=== PATIENT | male | born 1945 | race Caucasian/White ===

== ENCOUNTER 2018-07-03 11:26 | Inpatient (IN) | payer MEDICARE ==
[2018-07-03] MEDS ORDERED: IPRATROPIUM/ALBUTEROL 0.5-2.5 MG/3 ML AMPUL NEB ONE (13:31)
--- NOTE | 2018-07-03 14:17 | ER Document Report ---
ED General - General Chief Complaint: Cough Stated Complaint: COUGH,CONGESTION,SHORT OF BREATH Time Seen by Provider: 07/03/18 13:15 Mode of Arrival: Ambulatory Information source: Patient Notes: This 73-year-old male presents emergency department with complaints of shortness of breath. Patient reports approximately 2-3 weeks ago he was sick he had nausea. He reports his symptoms went away. For the past week he has had extreme shortness of breath with any type of exertion. Reports he becomes short of breath when laying flat. Or on his right side. He reports he feels better when he lays on his left side. Denies weight gain or pitting edema. He denies chest pain denies fever nausea vomiting. Denies trauma. Reports that he just drove from [place] to [place] on Friday. He took 2 days driving approximately 8 hours each day. He reports he did not get out and walk around that much. Patient is a diabetic and gives himself Lantus 35 units every a.m. He reports his sugar has been on the low side lately. Patient has history of OR with stents placed in 1994 and bypass in 2011. TRAVEL OUTSIDE OF THE [place] IN LAST 30 DAYS: No - HPI Onset: Other Onset/Duration: Persistent Quality of pain: No pain Severity: None Associated symptoms: None Exacerbated by: Supine - Related Data Allergies/Adverse Reactions: No Known Allergies Allergy (Unverified 07/03/18 11:31) Past Medical History - General Information source: Patient - Social History Smoking Status: Former Smoker Cigarette use (# per day): No Chew tobacco use (# tins/day): No Frequency of alcohol use: None Drug Abuse: None Lives with: Family Family History: Reviewed & Not Pertinent Patient has suicidal ideation: No Patient has homicidal ideation: No - Past Medical History Cardiac Medical History: Reports: Hx Heart Attack - 1994, Hx Hypercholesterolemia, Hx Hypertension Endocrine Medical History: Reports: Hx Diabetes Mellitus Type 2 Renal/ Medical History: Denies: Hx Peritoneal Dialysis Past Surgical History: Reports: Hx Cardiac Surgery - CABG Review of Systems - Review of Systems Notes: Review HPI for review of systems., All other systems negative Physical Exam - Vital signs Vitals: Pulse Resp BP Pulse Ox 71 20 121/89 H 98 07/03/18 11:32 07/03/18 11:32 07/03/18 11:32 07/03/18 11:32 - Notes Notes: PHYSICAL EXAMINATION: GENERAL: Well-appearing and in no acute distress HEAD: Atraumatic, normocephalic. EYES: Pupils equal round , extraocular movements intact, sclera anicteric, conjunctiva are normal. ENT: nares patent. Moist mucous membranes. NECK: Normal range of motion, supple without lymphadenopathy LUNGS: wheeze, SOB with exertion HEART: irregular ABDOMEN: Soft, round, no tenderness. No guarding, no rebound EXTREMITIES: Normal range of motion, no pitting edema. No cyanosis. NEUROLOGICAL: Cranial nerves grossly intact. Normal sensory/motor exams. PSYCH: Normal mood, normal affect. SKIN: Warm, Dry, normal turgor, no rashes or lesions noted - Respiratory Respiratory status: No respiratory distress Chest status: Nontender Breath sounds: Wheezing Chest palpation: Normal - Cardiovascular Rhythm: Other - irregular -rvr Course - Re-evaluation Re-evalutation: 07/03/18 14:28 Instructed on plan of care to include labs EKG chest x-ray. He reports he feels better after the neb treatment. 07/03/18 15:45 Dr. AZAR consulted for admission for A. fib shortness of breath pleural effusions. He admits to IMCU will consult Dr. Warner for him. 07/03/18 16:[address] Leger. Discussed medications. Patient is currently taking Lopressor [address] Warner suggest 5 mg IV Lopressor followed by a CTA of the chest.. Patient and informed of admission to treat the atrial fib. They agree to admissions. Patient reports he does remember having atrial fib at one time. He reports after he had his bypass he was about to be discharged when they told him he was not going home because he was in atrial fib. He reports he was treated with medication the atrial fib went away and he went home. 07/03/18 16:35 Dr. Warner on the phone. He requested patient to have half-normal saline 50 mils an hour for 1 L. - Vital Signs Vital signs: Temp Pulse Resp BP Pulse Ox 97.6 F 71 22 H 127/102 H 93 07/03/18 15:40 07/03/18 11:32 07/03/18 16:01 07/03/18 16:01 07/03/18 16:01 - Laboratory Result Diagrams: 07/03/18 14:15 07/03/18 14:15 Laboratory results interpreted by me: 07/03/18 07/03/18 07/03/18 14:15 14:15 14:15 WBC 12.7 H RDW 14.2 H Seg Neutrophils % 82.9 H Lymphocytes % 9.4 L Absolute Neutrophils 10.5 H PT BUN 35 H Creatinine 1.26 H Est GFR (Non-Af Amer) 56 L Total Bilirubin 1.5 H Creatine Kinase 49 L NT-Pro-B Natriuret Pep 2880 H Urine Protein Urine Glucose (UA) Urine Bilirubin Urine Urobilinogen 07/03/18 07/03/18 14:15 14:15 WBC RDW Seg Neutrophils % Lymphocytes % Absolute Neutrophils PT 15.6 H BUN Creatinine Est GFR (Non-Af Amer) Total Bilirubin Creatine Kinase NT-Pro-B Natriuret Pep Urine Protein >=500 H Urine Glucose (UA) 50 H Urine Bilirubin SMALL H Urine Urobilinogen 2.0 H - Diagnostic Test Radiology reviewed: Image reviewed, Reports reviewed - EXAM DESCRIPTION: CHEST 2 VIEWS COMPLETED DATE/TIME: 07/03/2018 2:02 pm REASON FOR STUDY: SOB COMPARISON: None. EXAM PARAMETERS: NUMBER OF VIEWS: two views TECHNIQUE: Digital Frontal and Lateral radiographic views of the chest acquired. RADIATION DOSE: NA LIMITATIONS: none FINDINGS: LUNGS AND PLEURA: Diffuse interstitial prominence. No opacities, masses or pneumothorax. Left pleural effusion. Possible small right pleural effusion. MEDIASTINUM AND HILAR STRUCTURES: No masses or contour abnormalities. HEART AND VASCULAR STRUCTURES: Heart normal size. No evidence for failure. BONES: No acute findings. HARDWARE: Sternotomy wires and surgical clips. OTHER: No other significant finding. IMPRESSION: DIFFUSE INTERSTITIAL PROMINENCE, PRESUMED CHRONIC SCARRING. LEFT PLEURAL EFFUSION. POSSIBLE SMALL RIGHT PLEURAL EFFUSION. - EKG Interpretation by Me Rhythm: A.Fib Additional EKG results interpreted by me: 07/03/18 16:10 rvr - Consults [facility] Time consulted: 15:45 Reason for consultation: 07/03/18 16:08 AFIB, SOB, PLEURAL EFFUSIONS Consulted provider: will see as inpatient [facility] Time consulted: 16:00 Reason for consultation: 07/03/18 16:09 AFIB, CONSULT FROM HOSPITALIST Consulted provider: will see as inpatient Discharge - Discharge Clinical Impression: SOB (shortness of breath), New onset atrial fibrillation Condition: Stable Disposition: ADMITTED INPATIENT Admitting Provider: Hospitalist - [facility] Unit Admitted: [facility]
--- NOTE | 2018-07-03 14:19 | RADIOLOGY REPORT (SQ) ---
EXAM DESCRIPTION: CHEST 2 VIEWS COMPLETED DATE/TIME: 07/03/2018 2:02 pm REASON FOR STUDY: SOB COMPARISON: None. EXAM PARAMETERS: NUMBER OF VIEWS: two views TECHNIQUE: Digital Frontal and Lateral radiographic views of the chest acquired. RADIATION DOSE: NA LIMITATIONS: none FINDINGS: LUNGS AND PLEURA: Diffuse interstitial prominence. No opacities, masses or pneumothorax. Left pleural effusion. Possible small right pleural effusion. MEDIASTINUM AND HILAR STRUCTURES: No masses or contour abnormalities. HEART AND VASCULAR STRUCTURES: Heart normal size. No evidence for failure. BONES: No acute findings. HARDWARE: Sternotomy wires and surgical clips. OTHER: No other significant finding. IMPRESSION: DIFFUSE INTERSTITIAL PROMINENCE, PRESUMED CHRONIC SCARRING. LEFT PLEURAL EFFUSION. POS SIBLE SMALL RIGHT PLEURAL EFFUSION. TECHNICAL DOCUMENTATION: JOB ID: [id number] [employer] All Rights Reserved Reading location - IP/workstation name: [email or web address]
[2018-07-03 14:30] LABS: ABSOLUTE BASOPHILS # (AUTO) 0.1 10^3/uL (0.0-0.2); ABSOLUTE LYMPHOCYTES (AUTO) 1.2 10^3/uL (0.5-4.7); ABSOLUTE MONOCYTES (AUTO) 0.8 10^3/uL (0.1-1.4); ABSOLUTE NEUT (AUTO) 10.5 10^3/uL (1.7-8.2); BASOPHILS % (AUTO) 0.9 % (0-2); EOSINOPHILS % (AUTO) 0.3 % (0-6); HEMATOCRIT 41.7 % (37.9-51.0); LYMPHOCYTES % (AUTO) 9.4 % (13-45); MEAN CORPUSCULAR HEMOGLOBIN 30.6 pg (27.0-33.4); MEAN CORPUSCULAR HGB CONC 33.6 g/dL (32.0-36.0); MEAN CORPUSCULAR VOLUME 91 fl (80-97); MONOCYTES % (AUTO) 6.5 % (3-13); PLATELET COUNT 232 10^3/uL (150-450); RED BLOOD COUNT 4.58 10^6/uL (4.35-5.55); RED CELL DISTRIBUTION WIDTH 14.2 % (11.5-14.0); SEGMENTED NEUTROPHILS % (AUTO) 82.9 % (42-78); TOTAL CELLS COUNTED % (AUTO) 100 %; WHITE BLOOD COUNT 12.7 10^3/uL (4.0-10.5)
[2018-07-03 14:46] LABS: INTERNATIONAL RATION (INR) 1.18; PROTHROMBIN TIME 15.6 SEC (11.4-15.4)
[2018-07-03 14:47] LABS: APPEARANCE,URINE SLIGHTLY-CLOUDY; BILIRUBIN,URINE SMALL (NEGATIVE); GLUCOSE, URINE 50 mg/dL (NEGATIVE); KETONES,URINE NEGATIVE (NEGATIVE); LEUKOCYTE ESTERASE,URINE NEGATIVE (NEGATIVE); NITRITE,URINE NEGATIVE (NEGATIVE); PARTIAL THROMBOPLASTIN TIME 32.7 SEC (23.5-35.8); PROTEIN,URINE >=500 mg/dL (NEGATIVE); URINE SPECIFIC GRAVITY 1.034
[2018-07-03 14:48] LABS: ALANINE AMINOTRANSFERASE 58 U/L (21-72); ALBUMIN 4.5 g/dL (3.5-5.0); ALKALINE PHOSPHATASE 73 U/L (38-126); ANION GAP 11 (5-19); ASPARTATE AMINO TRANSFERASE 37 U/L (17-59); BILIRUBIN,DIRECT 0.4 mg/dL (0.0-0.4); BILIRUBIN,TOTAL 1.5 mg/dL (0.2-1.3); BLOOD UREA NITROGEN 35 mg/dL (7-20); CALCIUM 9.4 mg/dL (8.4-10.2); CARBON DIOXIDE 25 mmol/L (22-30); CHLORIDE 103 mmol/L (98-107); COLOR,URINE DARK YELLOW; CREATINE KINASE 49 U/L (55-170); GLUCOSE 110 mg/dL (75-110); SODIUM 138.7 mmol/L (137-145); TOTAL PROTEIN 7.4 g/dL (6.3-8.2)
[2018-07-03 14:59] LABS: CREATINE KINASE MB 1.04 ng/mL (<4.55); NT PRO BNP 2880 pg/mL (5-900)
[2018-07-03 15:00] LABS: TROPONIN I < 0.012 ng/mL
[2018-07-03] MEDS ORDERED: METOPROLOL TARTRATE PF/INJ 5 MG/5 ML SDV IV ONE (16:06)
[2018-07-03] MEDS ORDERED: NORMAL SALINE 1000 ML 1,000 ML IV ONE (16:35)
[2018-07-03] MEDS ORDERED: 1/2 NORMAL SALINE 1,000 ML IV ONE (16:37)
--- NOTE | 2018-07-03 17:03 | RADIOLOGY REPORT (SQ) ---
EXAM DESCRIPTION: CTA CHEST COMPLETED DATE/TIME: 07/03/2018 4:45 pm REASON FOR STUDY: SOB COMPARISON: None. TECHNIQUE: CT scan of the chest performed using helical scanning technique with dynamic intravenous contrast injection. Images reviewed with lung, soft tissue and bone windows. Reconstructed coronal and sagittal MPR images reviewed. Additional 3 dimensional post-processing performed to develop Maximal Intensity Projection images (GA P). All images stored on PACS. All CT scanners at this facility use dose modulation, iterative reconstruction, and/or weight based d osing when appropriate to reduce radiation dose to as low as reasonably achievable (ALARA). [facility]: Dose Right [facility]: CareDose [facility]: Dose Right [facility]: Teradose 4D [facility]: KSKT CONTRAST TYPE AND DOSE: contrast/concentration: Isovue 350.00 mg/ml; Total Contrast Delivered: 79.0 ml; Total Saline Delivered: 110.0 ml Contrast bolus optimized for the pulmonary arteries. Not diagnostic for the aorta. RENAL FUNCTION: BUN 35 creatinine 1.26. RADIATION DOSE: CT Rad equipment meets quality standard of care and radiation dose reduction techniq ues were employed. CTDIvol: 17.3 - 52.9 mGy. DLP: 688 mGy-cm. . LIMITATIONS: None. FINDINGS: LUNGS AND PLEURA: No masses, infiltrates, or pneumothorax. Scattered atelectasis in the l ower lobes. Moderately large bilateral pleural effusions. . AORTA AND GREAT VESSELS: No aneurysm. Contrast bolus not optimized for the aorta. HEART: No pericardial effusion. No significant coronary artery calcifications. PULMONARY ARTERIES: No emboli visualized in the main pulmonary arteries or the segmental branches. HILAR AND MEDIASTINAL STRUCTURES: No identified masses or abnormal nodes. HARDWARE: None in the chest. UPPER ABDOMEN: No significant findings. Limited exam. THYROID AND OTHER SOFT TISSUES: No masses. No adenopathy. BONES: No acute or significant finding. 3D MIPS: Confirm above findings. OTHER: No other significant finding. IMPRESSION: 1. NORMAL CTA OF THE CHEST. NO PULMONARY EMBOLI. 2. MODERATELY LARGE BILATERAL PLEURAL EFFUSIONS WITH BASILAR ATELECTASIS. COMMENT: Quality ID # [id number]: Final reports with documentation of one or more dose reduction techniques (e.g., Automated exposure control, adjustment of the mA and/or kV according to patient size, use of iterative reconstruction technique) TECHNICAL DOCUMENTATION: JOB ID: [id number]- All Rights Reserved Reading location - IP/workstation name: [email or web address]
[2018-07-03] MEDS ORDERED: DOCUSATE SODIUM 100 MG CAPSULE PO PRN (17:36)
[2018-07-03] MEDS ORDERED: ACETAMINOPHEN 325 MG TABLET PO PRN (17:36)
[2018-07-03] MEDS ORDERED: ONDANSETRON 4 MG TAB.RAPDIS PO PRN (17:36)
--- NOTE | 2018-07-03 17:40 | EKG REPORT ---
SEVERITY:- ABNORMAL ECG - ATRIAL FIBRILLATION WITH RVR. NONSPECIFIC T ABNORMALITIES, INFERIOR LEADS BORDERLINE PROLONGED QT INTERVAL : Confirmed by: Lc Ulloa MD 03-Jul-2018 17:39:57
[2018-07-03] MEDS ORDERED: DILTIAZEM HCL INJ 25 MG/5 ML VIAL IV ONE (17:49)
[2018-07-03] MEDS: DILTIAZEM HCL/D5W 125 MG/125 ML RTUINJ IV PRN (18:11)
[2018-07-03] MEDS: APIXABAN 5 MG TABLET PO SCH (19:04)
[2018-07-03] MEDS ORDERED: INSULIN REG, HUMAN 100 UNIT/ML 3 ML VIAL (PYX) SUBCUT PRN (20:36)
[2018-07-03] MEDS ORDERED: DEXTROSE 50%-WATER 25 GM/50 ML DISP.SYRIN IV PRN ×2 (20:36)
[2018-07-03] MEDS ORDERED: DEXTROSE 40% GEL 15 GM TUBE PO PRN ×2 (20:36)
[2018-07-03] MEDS ORDERED: GLUCAGON,HUMAN RECOMB 1 MG INJ IM PRN (20:36)
[2018-07-03 20:38] LABS: CREATINE KINASE MB 0.97 ng/mL (<4.55)
--- NOTE | 2018-07-03 20:38 | PDOC H&P ---
History of Present Illness Admission Date/PCP: 07/03/18 16:12 Patient complains of: Weakness, dyspnea, nausea but no chest pain History of Present Illness: COOPER AMADOR is a 73 year old male with a history of coronary stents and subsequent four-vessel bypass (2011) as well as hypertension, diabetes mellitus and psoriasis. He is visiting his grandson from [facility]. His reports that he is not been feeling well over the past 1-2 weeks but refused to go to the doctor. Symptoms were as noted above. His symptoms would fluctuate over the course of the 1-2 weeks. He began to have a productive cough. He presented to a walk-in clinic where his atrial fibrillation with rapid ventricular response was identified. He was directed to go to the emergency room. He was found to be in atrial fibrillation with heart rate between 130 and 150. He is referred to the hospitalist for admission. Past Medical History Cardiac Medical History: Reports: Coronary Artery Disease, Myocardial Infarction - 1994, Hyperlipidema, Hypertension Pulmonary Medical History: Denies: Asthma, Chronic Obstructive Pulmonary Disease (COPD), Respiratory Failure EENT Medical History: Reports: None Neurological Medical History: Reports: None Endocrine Medical History: Reports: Diabetes Mellitus Type 2 Renal/ Medical History: Reports: None Malignancy Medical History: Reports: None GI Medical History: Reports: None Musculoskeltal Medical History: Reports: None Skin Medical History: Reports: None Psychiatric Medical History: Reports: None Traumatic Medical History: Reports: None Hematology: Reports: None Infectious Medical History: Reports: None Past Surgical History Past Surgical History: Reports: Cardiac Catheterization - With stents, Coronary Artery Bypass Graft Social History Information Source: Patient, Relative Lives with: Family Smoking Status: Former Smoker Frequency of Alcohol Use: Rare Hx Recreational Drug Use: No Drugs: None Hx Prescription Drug Abuse: No - Advance Directive Resuscitation Status: Full Code Surrogate healthcare decision maker:: The patient's is the designated healthcare proxy. No formal documentation exists at this time. Family History Family History: CAD, Thyroid Disfunction Parental Family History Reviewed: Yes Children Family History Reviewed: Yes Sibling(s) Family History Reviewed.: Yes Medication/Allergy Home Medications: Aspirin [Aspirin 325 mg Tablet] 325 mg PO DAILY 07/03/18 Atorvastatin Calcium [Lipitor 20 mg Tablet] 20 mg PO DAILY 07/03/18 Insulin Glargine,Hum.rec.anlog [Lantus Insulin 100 Unit/mL] 35 unit SQ QHS 07/03/18 Metformin HCl 1,000 mg PO BID 07/03/18 Metoprolol Tartrate [Lopressor 50 mg Tablet] 50 mg PO DAILY 07/03/18 Ramipril [Altace 5 mg Capsule] 5 mg PO QHS 07/03/18 Allergies/Adverse Reactions: No Known Allergies Allergy (Unverified 07/03/18 11:31) Review of Systems Constitutional: PRESENT: as per HPI, fatigue. ABSENT: chills, headache(s), night sweats Ears: ABSENT: hearing changes Nose, Mouth, and Throat: ABSENT: mouth pain, sore throat Cardiovascular: PRESENT: dyspnea on exertion, edema, palpitations. ABSENT: chest pain Respiratory: PRESENT: cough, dyspnea, sputum Gastrointestinal: PRESENT: nausea. ABSENT: abdominal pain, constipation, diarrhea, heartburn, melena, vomiting Genitourinary: ABSENT: dysuria, hematuria Musculoskeletal: ABSENT: back pain, deformity, joint swelling Integumentary: ABSENT: diaphoresis, erythema, rash, wounds Neurological: ABSENT: abnormal gait, abnormal speech, convulsions, memory loss, syncope Psychiatric: ABSENT: anxiety, depression, hallucinations Endocrine: ABSENT: cold intolerance, heat intolerance, polydipsia, polyuria Hematologic/Lymphatic: ABSENT: easy bleeding, easy bruising Allergic/Immunologic: ABSENT: seasonal rhinorrhea Physical Exam Vital Signs: Temp Pulse Resp BP Pulse Ox 97.6 F 71 20 106/73 95 07/03/18 15:40 07/03/18 11:32 07/03/18 19:01 07/03/18 19:01 07/03/18 19:01 Intake & Output 07/02/18 07/03/18 07/04/18 06:59 06:59 06:59 Weight 89.1 kg General appearance: PRESENT: no acute distress, cooperative, well-developed Head exam: PRESENT: normocephalic Eye exam: PRESENT: conjunctiva pink, EOMI. ABSENT: scleral icterus Ear exam: PRESENT: normal external ear exam Mouth exam: PRESENT: moist, tongue midline Teeth exam: ABSENT: dental caries, dental tenderness Neck exam: PRESENT: full ROM. ABSENT: carotid bruit, JVD, lymphadenopathy Respiratory exam: PRESENT: rales - Faint rales bilateral bases, symmetrical, unlabored. ABSENT: accessory muscle use, rhonchi, wheezes Cardiovascular exam: PRESENT: irregular rhythm, tachycardia Pulses: PRESENT: normal radial pulses, normal dorsalis pedis pul GI/Abdominal exam: PRESENT: normal bowel sounds, soft. ABSENT: ascites, distended, guarding, tenderness Rectal exam: PRESENT: deferred Extremities exam: PRESENT: pedal edema. ABSENT: calf tenderness Musculoskeletal exam: PRESENT: ambulatory Neurological exam: PRESENT: alert, awake, oriented to person, oriented to place, oriented to time, oriented to situation, CN II-XII grossly intact Psychiatric exam: PRESENT: appropriate affect, normal mood. ABSENT: agitated, anxious Focused psych exam: ABSENT: restlessness Skin exam: PRESENT: dry, warm. ABSENT: erythema, rash Results Laboratory Results: 07/03/18 14:15 07/03/18 14:15 07/03/18 07/03/18 07/03/18 14:15 14:15 14:15 WBC 12.7 H RBC 4.58 Hgb 14.0 Hct 41.7 MCV 91 MCH 30.6 MCHC 33.6 RDW 14.2 H Plt Count 232 Seg Neutrophils % 82.9 H Lymphocytes % 9.4 L Monocytes % 6.5 Eosinophils % 0.3 Basophils % 0.9 Absolute Neutrophils 10.5 H Absolute Lymphocytes 1.2 Absolute Monocytes 0.8 Absolute Eosinophils 0.0 Absolute Basophils 0.1 Sodium 138.7 Potassium 5.0 Chloride 103 Carbon Dioxide 25 Anion Gap 11 BUN 35 H Creatinine 1.26 H Est GFR ( Amer) > 60 Est GFR (Non-Af Amer) 56 L Glucose 110 Calcium 9.4 Total Bilirubin 1.5 H AST 37 ALT 58 Alkaline Phosphatase 73 Total Protein 7.4 Albumin 4.5 Urine Color DARK YELLOW Urine Appearance SLIGHTLY-CLOUDY Urine pH 5.0 Ur Specific [place] 1.034 Urine Protein >=500 H Urine Glucose (UA) 50 H Urine Ketones NEGATIVE Urine Blood NEGATIVE Urine Nitrite NEGATIVE Ur Leukocyte Esterase NEGATIVE Urine WBC (Auto) 13 Urine RBC (Auto) 6 07/03/18 07/03/18 14:15 14:15 Creatine Kinase 49 L CK-MB (CK-2) 1.04 Troponin I < 0.012 NT-Pro-B Natriuret Pep 2880 H Impressions: Chest X-Ray 07/03/18 13:32 IMPRESSION: DIFFUSE INTERSTITIAL PROMINENCE, PRESUMED CHRONIC SCARRING. LEFT PLEURAL EFFUSION. POSSIBLE SMALL RIGHT PLEURAL EFFUSION. Chest/Abdomen CTA 07/03/18 16:07 IMPRESSION: 1. NORMAL CTA OF THE CHEST. NO PULMONARY EMBOLI. 2. MODERATELY LARGE BILATERAL PLEURAL EFFUSIONS WITH BASILAR ATELECTASIS. Assessment & Plan - Diagnosis (1) Atrial fibrillation with rapid ventricular response Is this a current diagnosis for this admission?: Yes Plan: No obvious etiology. The patient reported that after his bypass surgery he had transient atrial fibrillation. It was such a short course that he was not put on anticoagulants. The patient is on metoprolol. He will receive a bolus of diltiazem and be placed on a diltiazem drip. We will likely be able to easily convert him to oral medications. I did start him on apixaban as he will need anticoagulation. He is inappropriate for defibrillation since he has been having symptoms for 1-2 weeks. I explained that his shortness of breath will likely improve as well. (2) SOB (shortness of breath) Is this a current diagnosis for this admission?: Yes Plan: Most likely related to the uncontrolled atrial fibrillation. He will receive furosemide. The shortness of breath should resolve fairly quickly. (3) Coronary artery disease involving autologous artery coronary bypass graft Qualifiers: Associated angina: without angina Qualified Code(s): I25.810 - Atherosclerosis of coronary artery bypass graft(s) without angina pectoris Is this a current diagnosis for this admission?: Yes Plan: The patient had stents placed in 1994 and subsequent four-vessel bypass in 2011. We will continue his aspirin, metoprolol, round Toprol and atorvastatin. Diltiazem is been added as noted above. (4) Diabetes mellitus type 2, insulin dependent Is this a current diagnosis for this admission?: Yes Plan: We will need to hold the patient's metformin for 48 hours because he did have imaging with contrast. In addition to his Lantus he will be on a controlled carbohydrate diet and I placed him on a regular insulin sliding scale with before meals and at bedtime checks (5) Hypertension Qualifiers: Hypertension type: essential hypertension Qualified Code(s): I10 - Essential (primary) hypertension Is this a current diagnosis for this admission?: Yes Plan: Medications as outlined above. Continue to monitor blood pressure. - Time Time Spent: Greater than 70 Minutes Medications reviewed and adjusted accordingly: Yes Anticipated discharge: Home - Inpatient Certification Based on my medical assessment, after consideration of the patient's comorbidities, presenting symptoms, or acuity I expect that the services needed warrant INPATIENT care.: Yes I certify that my determination is in accordance with my understanding of Medicare's requirements for reasonable and necessary INPATIENT services [42 CFR 412.3e].: Yes Medical Necessity: Need Close Monitoring Due to Risk of Patient Decompensation, Need For Continuous Telemetry Monitoring, Risk of Complication if Not Cared For in Hospital - Plan Summary Plan Summary: The patient's will bring his medications to the hospital tomorrow. They were planning to be in town for approximately 1 month visiting their grandson. 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
[2018-07-03 20:40] LABS: TROPONIN I < 0.012 ng/mL
[2018-07-03] MEDS: METOPROLOL TARTRATE 50 MG TABLET PO SCH (21:37)
[2018-07-03] MEDS: FAMOTIDINE 20 MG TABLET PO SCH (21:37)
[2018-07-03] MEDS: RAMIPRIL 5 MG CAPSULE PO SCH (21:37)
[2018-07-03] MEDS: INSULIN GLARGINE,HUM.REC.ANLOG 300 UNIT/3 ML INSULN.PEN SUBCUT SCH (21:38)
[2018-07-04 02:27] LABS: CREATINE KINASE MB 0.81 ng/mL (<4.55)
[2018-07-04 02:35] LABS: TROPONIN I < 0.012 ng/mL
[2018-07-04 07:33] LABS: ABSOLUTE BASOPHILS # (AUTO) 0.1 10^3/uL (0.0-0.2); ABSOLUTE EOSINOPHILS # (AUTO) 0.1 10^3/uL (0.0-0.6); ABSOLUTE MONOCYTES (AUTO) 0.8 10^3/uL (0.1-1.4); ABSOLUTE NEUT (AUTO) 6.7 10^3/uL (1.7-8.2); BASOPHILS % (AUTO) 1.4 % (0-2); EOSINOPHILS % (AUTO) 0.9 % (0-6); HEMOGLOBIN 12.6 g/dL (13.5-17.0); LYMPHOCYTES % (AUTO) 20.7 % (13-45); MEAN CORPUSCULAR HEMOGLOBIN 30.8 pg (27.0-33.4); MEAN CORPUSCULAR HGB CONC 34.1 g/dL (32.0-36.0); MEAN CORPUSCULAR VOLUME 90 fl (80-97); MONOCYTES % (AUTO) 7.8 % (3-13); PLATELET COUNT 181 10^3/uL (150-450); RED BLOOD COUNT 4.09 10^6/uL (4.35-5.55); RED CELL DISTRIBUTION WIDTH 14.2 % (11.5-14.0); SEGMENTED NEUTROPHILS % (AUTO) 69.2 % (42-78); TOTAL CELLS COUNTED % (AUTO) 100 %; WHITE BLOOD COUNT 9.6 10^3/uL (4.0-10.5)
[2018-07-04 07:53] LABS: ALANINE AMINOTRANSFERASE 62 U/L (21-72); ALBUMIN 3.8 g/dL (3.5-5.0); ALKALINE PHOSPHATASE 65 U/L (38-126); ANION GAP 10 (5-19); ASPARTATE AMINO TRANSFERASE 46 U/L (17-59); BILIRUBIN,DIRECT 0.3 mg/dL (0.0-0.4); BILIRUBIN,TOTAL 1.3 mg/dL (0.2-1.3); BLOOD UREA NITROGEN 32 mg/dL (7-20); CALCIUM 8.8 mg/dL (8.4-10.2); CARBON DIOXIDE 23 mmol/L (22-30); CHLORIDE 104 mmol/L (98-107); CHOLESTEROL 64.55 mg/dL (0-200); CREATINE KINASE 38 U/L (55-170); GLUCOSE 102 mg/dL (75-110); PHOSPHORUS 3.7 mg/dL (2.5-4.5); POTASSIUM 4.3 mmol/L (3.6-5.0); SODIUM 137.2 mmol/L (137-145); TOTAL PROTEIN 6.3 g/dL (6.3-8.2); TRIGLYCERIDES 51 mg/dL (<150)
[2018-07-04 07:56] LABS: CREATINE KINASE MB 0.75 ng/mL (<4.55)
[2018-07-04 07:58] LABS: TROPONIN I < 0.012 ng/mL
[2018-07-04 08:04] LABS: DIRECT LDL 43 mg/dL (<100)
--- NOTE | 2018-07-04 08:39 | RADIOLOGY REPORT (SQ) ---
EXAM DESCRIPTION: CHEST SINGLE VIEW COMPLETED DATE/TIME: 07/04/2018 7:35 am REASON FOR STUDY: chf COMPARISON: 07/03/2018 EXAM PARAMETERS: NUMBER OF VIEWS: One view. TECHNIQUE: Single frontal radiographic view of the chest acquired. RADIATION DOSE: NA LIMITATIONS: None. FINDINGS: LUNGS AND PLEURA: Generally improved aeration of the lungs. Persistent small left effusio n. MEDIASTINUM AND HILAR STRUCTURES: No masses. Contour normal. HEART AND VASCULAR STRUCTURES: Heart enlarged. Improvement in the vascular congestion. BONES: Sternal wires. HARDWARE: None in the chest. OTHER: No other significant finding. IMPRESSION: Improved aeration of the lungs with decrease in the vascular congestion. Persistent car diac enlargement and small left effusion. TECHNICAL DOCUMENTATION: JOB ID: [id number] [employer]- All Rights Reserved Reading location - IP/workstation name: [email or web address]
[2018-07-04] MEDS ORDERED: FUROSEMIDE 20 MG TABLET PO SCH (10:00)
[2018-07-04] MEDS: ATORVASTATIN CALCIUM 20 MG TABLET PO SCH (10:12)
[2018-07-04] MEDS: APIXABAN 5 MG TABLET PO SCH ×2 (10:12→17:34)
[2018-07-04] MEDS: ASPIRIN 81 MG TABLET, CHEWABLE PO SCH (10:12)
[2018-07-04] MEDS: FAMOTIDINE 20 MG TABLET PO SCH ×2 (10:13→21:55)
[2018-07-04] MEDS: METOPROLOL TARTRATE 50 MG TABLET PO SCH ×2 (10:13→21:55)
[2018-07-04] MEDS: DILTIAZEM HCL/D5W 125 MG/125 ML RTUINJ IV PRN (13:37)
[2018-07-04] MEDS ORDERED: DILTIAZEM HCL 30 MG TABLET PO ONE (13:46)
--- NOTE | 2018-07-04 13:59 | PDOC PROGRESS REPORT ---
Subjective Progress Note for:: 07/04/18 Subjective:: The patient is actually resting quite comfortably. He is still coughing up white frothy sputum but he does note that the furosemide is causing increased urine output which is the desired goal. Reason For Visit: NEW ONSET ATRIAL FIBRILLATION Physical Exam Vital Signs: Temp Pulse Resp BP Pulse Ox 97.8 F 93 16 126/72 H 94 07/04/18 11:28 07/04/18 12:00 07/04/18 11:28 07/04/18 12:00 07/04/18 11:28 Intake & Output 07/03/18 07/04/18 07/05/18 06:59 06:59 06:59 Intake Total 97 Output Total 175 Balance -175 97 Weight 88.3 kg General appearance: PRESENT: no acute distress, cooperative, well-developed Head exam: PRESENT: normocephalic Respiratory exam: PRESENT: symmetrical, unlabored. ABSENT: accessory muscle use, crackles, rales - Faint at bases, rhonchi, wheezes Cardiovascular exam: PRESENT: irregular rhythm Extremities exam: PRESENT: pedal edema Neurological exam: PRESENT: alert, awake, oriented to person, oriented to place, oriented to time, oriented to situation, CN II-XII grossly intact Psychiatric exam: PRESENT: appropriate affect, normal mood. ABSENT: agitated, anxious Focused psych exam: ABSENT: restlessness Results Laboratory Results: 07/04/18 07:08 07/04/18 07:08 07/03/18 07/03/18 07/03/18 14:15 14:15 14:15 WBC 12.7 H RBC 4.58 Hgb 14.0 Hct 41.7 MCV 91 MCH 30.6 MCHC 33.6 RDW 14.2 H Plt Count 232 Seg Neutrophils % 82.9 H Lymphocytes % 9.4 L Monocytes % 6.5 Eosinophils % 0.3 Basophils % 0.9 Absolute Neutrophils 10.5 H Absolute Lymphocytes 1.2 Absolute Monocytes 0.8 Absolute Eosinophils 0.0 Absolute Basophils 0.1 Sodium 138.7 Potassium 5.0 Chloride 103 Carbon Dioxide 25 Anion Gap 11 BUN 35 H Creatinine 1.26 H Est GFR ( Amer) > 60 Est GFR (Non-Af Amer) 56 L Glucose 110 Calcium 9.4 Phosphorus Magnesium Total Bilirubin 1.5 H AST 37 ALT 58 Alkaline Phosphatase 73 Total Protein 7.4 Albumin 4.5 Triglycerides Cholesterol LDL Cholesterol Direct VLDL Cholesterol HDL Cholesterol Urine Color DARK YELLOW Urine Appearance SLIGHTLY-CLOUDY Urine pH 5.0 Ur Specific [place] 1.034 Urine Protein >=500 H Urine Glucose (UA) 50 H Urine Ketones NEGATIVE Urine Blood NEGATIVE Urine Nitrite NEGATIVE Ur Leukocyte Esterase NEGATIVE Urine WBC (Auto) 13 Urine RBC (Auto) 6 07/04/18 07/04/18 07:08 07:08 WBC 9.6 RBC 4.09 L Hgb 12.6 L Hct 37.0 L MCV 90 MCH 30.8 MCHC 34.1 RDW 14.2 H Plt Count 181 Seg Neutrophils % 69.2 Lymphocytes % 20.7 Monocytes % 7.8 Eosinophils % 0.9 Basophils % 1.4 Absolute Neutrophils 6.7 Absolute Lymphocytes 2.0 Absolute Monocytes 0.8 Absolute Eosinophils 0.1 Absolute Basophils 0.1 Sodium 137.2 Potassium 4.3 Chloride 104 Carbon Dioxide 23 Anion Gap 10 BUN 32 H Creatinine 0.87 Est GFR ( Amer) > 60 Est GFR (Non-Af Amer) > 60 Glucose 102 Calcium 8.8 Phosphorus 3.7 Magnesium 1.7 Total Bilirubin 1.3 AST 46 ALT 62 Alkaline Phosphatase 65 Total Protein 6.3 Albumin 3.8 Triglycerides 51 Cholesterol 64.55 LDL Cholesterol Direct 43 VLDL Cholesterol 10.0 HDL Cholesterol 23 L Urine Color Urine Appearance Urine pH Ur Specific [place] Urine Protein Urine Glucose (UA) Urine Ketones Urine Blood Urine Nitrite Ur Leukocyte Esterase Urine WBC (Auto) Urine RBC (Auto) 07/03/18 07/03/18 07/03/18 14:15 14:15 19:45 Creatine Kinase 49 L 45 L CK-MB (CK-2) 1.04 Troponin I < 0.012 NT-Pro-B Natriuret Pep 2880 H 07/03/18 07/04/18 07/04/18 19:45 01:51 01:51 Creatine Kinase 39 L CK-MB (CK-2) 0.97 0.81 Troponin I < 0.012 < 0.012 NT-Pro-B Natriuret Pep 07/04/18 07/04/18 07:08 07:08 Creatine Kinase 38 L CK-MB (CK-2) 0.75 Troponin I < 0.012 NT-Pro-B Natriuret Pep Impressions: Chest/Abdomen CTA 07/03/18 16:07 IMPRESSION: 1. NORMAL CTA OF THE CHEST. NO PULMONARY EMBOLI. 2. MODERATELY LARGE BILATERAL PLEURAL EFFUSIONS WITH BASILAR ATELECTASIS. Chest X-Ray 07/04/18 06:00 IMPRESSION: Improved aeration of the lungs with decrease in the vascular congestion. Persistent cardiac enlargement and small left effusion. Assessment & Plan - Diagnosis (1) Atrial fibrillation with rapid ventricular response Is this a current diagnosis for this admission?: Yes Plan: I will initiate diltiazem 30 mg every 6 hours and continue the metoprolol. His metoprolol dose at home is in fact 75 mg twice daily and so I will adjust his current dose to correlate with his home dose. He exhibits good rate control. We will continue anticoagulation. (2) SOB (shortness of breath) Is this a current diagnosis for this admission?: Yes Plan: Improved with furosemide. It is likely mild congestive failure from prolonged atrial fibrillation. I have increased the furosemide to 40 mg daily. Continue to monitor electrolytes. (3) Coronary artery disease involving autologous artery coronary bypass graft Qualifiers: Associated angina: without angina Qualified Code(s): I25.810 - Atherosclerosis of coronary artery bypass graft(s) without angina pectoris Is this a current diagnosis for this admission?: Yes Plan: Denies any chest pain. Continues on aspirin. (4) Diabetes mellitus type 2, insulin dependent Is this a current diagnosis for this admission?: Yes Plan: Hemoglobin A1c was 8.4. All fingerstick checks under 200. Continue current regimen. (5) Hypertension Qualifiers: Hypertension type: essential hypertension Qualified Code(s): I10 - E ssential (primary) hypertension Is this a current diagnosis for this admission?: Yes Plan: Well controlled. Tolerating current regimen. - Time Time Spent with patient: 15-24 minutes Medications reviewed and adjusted accordingly: Yes Anticipated discharge: Home Within: within 72 hours
[2018-07-04] MEDS: DILTIAZEM HCL 30 MG TABLET PO SCH ×2 (17:34→23:56)
[2018-07-04] MEDS: RAMIPRIL 5 MG CAPSULE PO SCH (21:55)
[2018-07-04] MEDS: INSULIN GLARGINE,HUM.REC.ANLOG 300 UNIT/3 ML INSULN.PEN SUBCUT SCH (21:55)
[2018-07-05 05:58] LABS: ANION GAP 9 (5-19); BLOOD UREA NITROGEN 24 mg/dL (7-20); CALCIUM 8.6 mg/dL (8.4-10.2); CARBON DIOXIDE 26 mmol/L (22-30); CHLORIDE 102 mmol/L (98-107); GLUCOSE 113 mg/dL (75-110); POTASSIUM 4.1 mmol/L (3.6-5.0); SODIUM 137.1 mmol/L (137-145)
[2018-07-05] MEDS: DILTIAZEM HCL 30 MG TABLET PO SCH ×3 (06:30→17:51)
[2018-07-05] MEDS: METOPROLOL TARTRATE 50 MG TABLET PO SCH ×2 (09:27→22:18)
[2018-07-05] MEDS: APIXABAN 5 MG TABLET PO SCH ×2 (09:27→17:52)
[2018-07-05] MEDS: FAMOTIDINE 20 MG TABLET PO SCH ×2 (09:27→22:18)
[2018-07-05] MEDS: ATORVASTATIN CALCIUM 20 MG TABLET PO SCH (09:28)
[2018-07-05] MEDS: ASPIRIN 81 MG TABLET, CHEWABLE PO SCH (09:28)
[2018-07-05] MEDS: FUROSEMIDE 20 MG TABLET PO SCH (09:28)
--- NOTE | 2018-07-05 11:09 | PDOC PROGRESS REPORT ---
Subjective Progress Note for:: 07/05/18 Subjective:: Patient is resting comfortably. He has been walking. Unfortunately his heart rate is still not well controlled. He denies any chest pain. He continues to produce good urine output. Reason For Visit: NEW ONSET ATRIAL FIBRILLATION Physical Exam Vital Signs: Temp Pulse Resp BP Pulse Ox 97.7 F 128 H 16 130/79 H 93 07/05/18 04:20 07/05/18 07:00 07/05/18 04:20 07/05/18 04:20 07/05/18 04:20 Intake & Output 07/04/18 07/05/18 07/06/18 06:59 06:59 06:59 Intake Total 334 Output Total 175 760 Balance -175 -426 Weight 88.3 kg 88 kg General appearance: PRESENT: no acute distress, cooperative, well-developed Head exam: PRESENT: normocephalic Ear exam: PRESENT: normal external ear exam Mouth exam: PRESENT: dry mucosa, tongue midline Respiratory exam: PRESENT: rales - Faint at bases, symmetrical, wheezes - Occasional expiratory wheeze. ABSENT: accessory muscle use, crackles, rhonchi Cardiovascular exam: PRESENT: irregular rhythm GI/Abdominal exam: PRESENT: normal bowel sounds, soft. ABSENT: distended, tenderness Rectal exam: PRESENT: deferred Extremities exam: PRESENT: pedal edema - Trace. ABSENT: calf tenderness Neurological exam: PRESENT: alert, awake, oriented to person, oriented to place, oriented to time, oriented to situation, CN II-XII grossly intact Psychiatric exam: PRESENT: appropriate affect, normal mood. ABSENT: agitated, anxious Focused psych exam: ABSENT: restlessness Results Laboratory Results: 07/04/18 07:08 07/05/18 04:31 07/05/18 04:31 Sodium 137.1 Potassium 4.1 Chloride 102 Carbon Dioxide 26 Anion Gap 9 BUN 24 H Creatinine 0.84 Est GFR ( Amer) > 60 Est GFR (Non-Af Amer) > 60 Glucose 113 H Calcium 8.6 Magnesium 1.8 07/03/18 07/03/18 07/03/18 14:15 14:15 19:45 Creatine Kinase 49 L 45 L CK-MB (CK-2) 1.04 Troponin I < 0.012 NT-Pro-B Natriuret Pep 2880 H 07/03/18 07/04/18 07/04/18 19:45 01:51 01:51 Creatine Kinase 39 L CK-MB (CK-2) 0.97 0.81 Troponin I < 0.012 < 0.012 NT-Pro-B Natriuret Pep 07/04/18 07/04/18 07:08 07:08 Creatine Kinase 38 L CK-MB (CK-2) 0.75 Troponin I < 0.012 NT-Pro-B Natriuret Pep Impressions: Chest/Abdomen CTA 07/03/18 16:07 IMPRESSION: 1. NORMAL CTA OF THE CHEST. NO PULMONARY EMBOLI. 2. MODERATELY LARGE BILATERAL PLEURAL EFFUSIONS WITH BASILAR ATELECTASIS. Chest X-Ray 07/04/18 06:00 IMPRESSION: Improved aeration of the lungs with decrease in the vascular congestion. Persistent cardiac enlargement and small left effusion. Assessment & Plan - Diagnosis (1) Atrial fibrillation with rapid ventricular response Is this a current diagnosis for this admission?: Yes Plan: Still not exhibiting adequate control. I will increase the metoprolol to 100 mg twice daily and the diltiazem to 60 mg 4 times a day. Continue anticoagulation. (2) SOB (shortness of breath) Is this a current diagnosis for this admission?: Yes Plan: Improved. Remains on room air. Does not feel short of breath with ambulation. (3) Coronary artery disease involving autologous artery coronary bypass graft Qualifiers: Associated angina: without angina Qualified Code(s): I25.810 - Atherosclerosis of coronary artery bypass graft(s) without angina pectoris Is this a current diagnosis for this admission?: Yes Plan: Stable on new medication regimen. No chest pain or pressure. (4) Diabetes mellitus type 2, insulin dependent Is this a current diagnosis for this admission?: Yes Plan: Improved control. The patient needs to maintain a stricter diabetic/cardiac diet at home. I will increase his Lantus to 38 units and adjust based on sliding scale requirements. (5) Hypertension Qualifiers: Hypertension type: essential hypertension Qualified Code(s): I10 - Essential (primary) hypertension Is this a current diagnosis for this admission?: Yes Plan: Good blood pressure control. We will need to monitor for hypotension with increased diltiazem and metoprolol. - Time Time Spent with patient: 15-24 minutes Medications reviewed and adjusted accordingly: Yes Anticipated discharge: Home Within: within 48 hours
[2018-07-05] MEDS ORDERED: DILTIAZEM HCL 60 MG TABLET ONE (13:21)
[2018-07-05] MEDS ORDERED: DILTIAZEM HCL 30 MG TABLET PO ONE (14:00)
--- NOTE | 2018-07-05 14:49 | PDOC PROGRESS REPORT ---
Subjective Progress Note for:: 07/05/18 - Disregard previous progress note inadvertently closed Subjective:: The patient is resting comfortably in the bed. His is at the bedside. He still has pulse rate above 100 frequently. He feels comfortable. Reason For Visit: NEW ONSET ATRIAL FIBRILLATION Physical Exam Vital Signs: Temp Pulse Resp BP Pulse Ox 97.7 F 138 H 16 130/79 H 93 07/05/18 04:20 07/05/18 14:00 07/05/18 04:20 07/05/18 04:20 07/05/18 04:20 Intake & Output 07/04/18 07/05/18 07/06/18 06:59 06:59 06:59 Intake Total 334 Output Total 175 760 Balance -175 -426 Weight 88.3 kg 88 kg General appearance: PRESENT: no acute distress, cooperative, well-developed Head exam: PRESENT: normocephalic Mouth exam: PRESENT: moist, tongue midline Neck exam: ABSENT: carotid bruit, lymphadenopathy Respiratory exam: PRESENT: rales, symmetrical, unlabored. ABSENT: crackles, prolonged expiratory phas, rhonchi, wheezes Cardiovascular exam: PRESENT: irregular rhythm GI/Abdominal exam: PRESENT: normal bowel sounds, soft. ABSENT: distended, tenderness Extremities exam: PRESENT: pedal edema Neurological exam: PRESENT: alert, awake, oriented to person, oriented to place, oriented to time, oriented to situation, CN II-XII grossly intact Psychiatric exam: PRESENT: normal mood. ABSENT: agitated, anxious Focused psych exam: ABSENT: restlessness Results Laboratory Results: 07/04/18 07:08 07/05/18 04:31 07/05/18 04:31 Sodium 137.1 Potassium 4.1 Chloride 102 Carbon Dioxide 26 Anion Gap 9 BUN 24 H Creatinine 0.84 Est GFR ( Amer) > 60 Est GFR (Non-Af Amer) > 60 Glucose 113 H Calcium 8.6 Magnesium 1.8 07/03/18 07/03/18 07/03/18 14:15 14:15 19:45 Creatine Kinase 49 L 45 L CK-MB (CK-2) 1.04 Troponin I < 0.012 NT-Pro-B Natriuret Pep 2880 H 07/03/18 07/04/18 07/04/18 19:45 01:51 01:51 Creatine Kinase 39 L CK-MB (CK-2) 0.97 0.81 Troponin I < 0.012 < 0.012 NT-Pro-B Natriuret Pep 07/04/18 07/04/18 07:08 07:08 Creatine Kinase 38 L CK-MB (CK-2) 0.75 Troponin I < 0.012 NT-Pro-B Natriuret Pep Impressions: Chest/Abdomen CTA 07/03/18 16:07 IMPRESSION: 1. NORMAL CTA OF THE CHEST. NO PULMONARY EMBOLI. 2. MODERATELY LARGE BILATERAL PLEURAL EFFUSIONS WITH BASILAR ATELECTASIS. Chest X-Ray 07/04/18 06:00 IMPRESSION: Improved aeration of the lungs with decrease in the vascular congestion. Persistent cardiac enlargement and small left effusion. Assessment & Plan - Diagnosis (1) Atrial fibrillation with rapid ventricular response Is this a current diagnosis for this admission?: Yes Plan: Increase the diltiazem to 60 mg every 6 hours and the metoprolol to 100 mg twice daily. He remains on apixaban for anticoagulation. (2) SOB (shortness of breath) Is this a current diagnosis for this admission?: Yes Plan: Improved with diuresis (3) Coronary artery disease involving autologous artery coronary bypass graft Qualifiers: Associated angina: without angina Qualified Code(s): I25.810 - Athero sclerosis of coronary artery bypass graft(s) without angina pectoris Is this a current diagnosis for this admission?: Yes Plan: Stable on current regimen. No chest pain or pressure. (4) Diabetes mellitus type 2, insulin dependent Is this a current diagnosis for this admission?: Yes Plan: Still has sugars above 200. I increased his Lantus to 38 units. (5) Hypertension Qualifiers: Hypertension type: essential hypertension Qualified Code(s): I10 - Essential (primary) hypertension Is this a current diagnosis for this admission?: Yes Plan: Reasonable blood pressure control on current regimen. Monitor for hypotension with increases in medication. - Time Time Spent with patient: 15-24 minutes Medications reviewed and adjusted accordingly: Yes Anticipated discharge: Home Within: within 72 hours
[2018-07-05] MEDS ORDERED: LEVALBUTEROL HCL NEB 1.25 MG/3 ML AMPUL NEB PRN (21:34)
[2018-07-05] MEDS ORDERED: INSULIN GLARGINE,HUM.REC.ANLOG 300 UNIT/3 ML INSULN.PEN SUBCUT SCH (22:00)
[2018-07-05] MEDS: RAMIPRIL 5 MG CAPSULE PO SCH (22:18)
[2018-07-06] MEDS: DILTIAZEM HCL 30 MG TABLET PO SCH ×2 (00:33→05:32)
[2018-07-06 04:55] LABS: HEMATOCRIT 36.8 % (37.9-51.0); HEMOGLOBIN 12.6 g/dL (13.5-17.0); MEAN CORPUSCULAR HEMOGLOBIN 30.6 pg (27.0-33.4); MEAN CORPUSCULAR HGB CONC 34.2 g/dL (32.0-36.0); MEAN CORPUSCULAR VOLUME 89 fl (80-97); PLATELET COUNT 188 10^3/uL (150-450); RED BLOOD COUNT 4.12 10^6/uL (4.35-5.55); RED CELL DISTRIBUTION WIDTH 14.2 % (11.5-14.0); WHITE BLOOD COUNT 9.1 10^3/uL (4.0-10.5)
[2018-07-06 05:31] LABS: ANION GAP 9 (5-19); BLOOD UREA NITROGEN 23 mg/dL (7-20); CALCIUM 8.4 mg/dL (8.4-10.2); CARBON DIOXIDE 26 mmol/L (22-30); CHLORIDE 103 mmol/L (98-107); GLUCOSE 86 mg/dL (75-110); POTASSIUM 3.7 mmol/L (3.6-5.0); SODIUM 138.1 mmol/L (137-145)
[2018-07-06 08:48] VITALS: BP 116/79
--- NOTE | 2018-07-06 09:28 | RADIOLOGY REPORT (SQ) ---
EXAM DESCRIPTION: CHEST 2 VIEWS COMPLETED DATE/TIME: 07/06/2018 9:10 am REASON FOR STUDY: Pleural effusion COMPARISON: Chest films 06/24/2018, 07/03/2018 CT angio chest 07/03/2018 EXAM PARAMETERS: NUMBER OF VIEWS: two views TECHNIQUE: Digital Frontal and Lateral radiographic views of the chest acquired. RADIATION DOSE: NA LIMITATIONS: none FINDINGS: LUNGS AND PLEURA: Persistent bibasilar airspace disease left greater than right atelectasi s versus pneumonia. Trace bilateral pleural effusions in the posterior costophrenic sulci unchanged. No pneumothorax MEDIASTINUM AND HILAR STRUCTURES: No masses or contour abnormalities. HEART AND VASCULAR STRUCTURES: Stable borderline cardiomegaly with old sternotomy and CABG BONES: No acute findings. HARDWARE: None in the chest. OTHER: No other significant finding. IMPRESSION: No change in bibasilar airspace disease and pleural trace bilateral pleural effusions co mpared to 07/03/2018 TECHNICAL DOCUMENTATION: JOB ID: [id number] [employer]- All Rights Reserved Reading location - IP/workstation name: [email or web address]
[2018-07-06] MEDS: METOPROLOL TARTRATE 50 MG TABLET PO SCH (09:30)
[2018-07-06] MEDS: FUROSEMIDE 20 MG TABLET PO SCH (09:30)
[2018-07-06] MEDS: APIXABAN 5 MG TABLET PO SCH (09:31)
[2018-07-06] MEDS: FAMOTIDINE 20 MG TABLET PO SCH (09:31)
[2018-07-06] MEDS: ATORVASTATIN CALCIUM 20 MG TABLET PO SCH (09:31)
[2018-07-06] MEDS: ASPIRIN 81 MG TABLET, CHEWABLE PO SCH (09:31)
--- NOTE | 2018-07-06 12:37 | PDOC DISCHARGE SUMMARY ---
General - Admit/Disc Date/PCP Admission Date/Primary Care Provider: 07/03/18 16:12 Discharge Date: 07/06/18 - Discharge Diagnosis (1) Atrial fibrillation with rapid ventricular response Is this a current diagnosis for this admission?: Yes Summary: The patient had a history of atrial fibrillation postoperatively from his bypass. Probably several days prior to admission he was not feeling well. He was found to be in atrial fibrillation with rapid ventricular response. Increasing his metoprolol was not sufficient. He was started on diltiazem and 60 mg 4 times a day seems to be very effective. I will provide a new prescription for the higher dose of metoprolol at 100 mg twice daily. I will continue the diltiazem at 60 mg 4 times a day until he follows up with his an/ssn 2 4 operator. If this dose is stable then he can convert to the 240 mg long- acting dose. He is also on apixaban 5 mg twice daily for anticoagulation. (2) SOB (shortness of breath) Is this a current diagnosis for this admission?: Yes Summary: The patient was found to have pleural effusion and vascular congestion. Likely congestive failure from his atrial fibrillation. He is tolerating furosemide daily. His potassium has been stable. I suggested a dose of potassium- containing foodstuffs (banana or orange juice) daily. He will follow-up with his an/ssn 2 4 operator in several weeks and likely obtain laboratory studies at that time as well. (3) Coronary artery disease involving autologous artery coronary bypass graft Is this a current diagnosis for this admission?: Yes Summary: Patient has been stable during his hospitalization. Because we are adding apixaban I am decreasing his aspirin to enteric-coated 81 mg daily. I will defer to his an/ssn 2 4 operator for any additional changes. His blood pressure has been tolerating the medication changes as well. (4) Diabetes mellitus type 2, insulin dependent Is this a current diagnosis for this admission?: Yes Summary: He will resume his metformin as an outpatient. I will return him to his 35 units of Lantus daily. I explained to him that he needs to be very compliant with his diabetic/cardiac diet. (5) Hypertension Is this a current diagnosis for this admission?: Yes Summary: As noted above, blood pressures are reasonably controlled on the new regimen. - Additional Information Resuscitation Status: Full Code Discharge Diet: Cardiac, Diabetic Discharge Activity: Activity As Tolerated, Walk Frequently Prescriptions: Apixaban [Eliquis 5 mg Tablet] 5 mg PO BID 30 Days #60 tablet Diltiazem HCl [Diltiazem 12Hr ER] 60 mg PO Q6H 30 Days #120 cap.er.12h Furosemide [Lasix 20 mg Tablet] 20 mg PO DAILY 30 Days #30 tablet Metoprolol Tartrate [Lopressor] 100 mg PO BID 30 Days #60 tablet Home Medications: Atorvastatin Calcium [Lipitor 20 mg Tablet] 20 mg PO DAILY 07/03/18 Insulin Glargine,Hum.rec.anlog [Lantus Insulin 100 Unit/mL] 35 unit SQ QHS 07/03/18 Metformin HCl 1,000 mg PO BID 07/03/18 Ramipril [Altace 5 mg Capsule] 5 mg PO QHS 07/03/18 Apixaban [Eliquis 5 mg Tablet] 5 mg PO BID 30 Days #60 tablet 07/06/18 Aspirin [Aspirin 81 mg Chewable Tablet] 81 mg PO DAILY tab.chew 07/06/18 Diltiazem HCl [Diltiazem 12Hr ER] 60 mg PO Q6H 30 Days #120 cap.er.12h 07/06/18 Famotidine [Pepcid 20 mg Tablet] 20 mg PO Q12 tablet 07/06/18 Furosemide [Lasix 20 mg Tablet] 20 mg PO DAILY 30 Days #30 tablet 07/06/18 Metoprolol Tartrate [Lopressor 50 mg Tablet] 100 mg PO Q12 tablet 07/06/18 Metoprolol Tartrate [Lopressor] 100 mg PO BID 30 Days #60 tablet 07/06/18 History of Present Illness Patient complains of: Feeling anxious and jittery with shortness of breath History of Present Illness: Please also see the dictated history and physical. Mr. Montero is visiting his grandson from [facility]. He intended to spend approximately 1 month in [facility]. Several days prior to presenting to the emergency department he began to feel anxious. He intermittently felt some funny sensation in his chest. He did not experience chest pressure or carey chest pain. He was developing shortness of breath with activity which is unusual for him. He also noticed some lower extremity swelling. During his evaluation in the emergency department he was found to be in atrial fibrillation with rapid ventricular response. He was referred to the hospitalist service for admission. Hospital Course Hospital Course: The patient had an uneventful hospital course. Between increasing his metoprolol and adding diltiazem were able to achieve good rate control. He was started on apixaban twice daily for anticoagulation and has tolerated this new medication. I have decreased his aspirin to 81 mg with the addition of the anticoagulant. His blood glucose readings were elevated. I held his metformin during his hospitalization but he will return to metformin at discharge with his normal dose of Lantus. His shortness of breath improved with diuresis. He will continue furosemide as an outpatient. The patient did ambulate during his hospitalization without any significant symptoms. He has been stable overnight on the current regimen and will discharge to home. He will remain in [place] for 2 more weeks before returning to the [facility] area. I have suggested that they call his an/ssn 2 4 operator now and set an appointment up for when he returns to [place]. Physical Exam Vital Signs: Temp Pulse Resp BP Pulse Ox 97.7 F 88 16 116/79 95 07/06/18 07:50 07/06/18 07:50 07/06/18 07:50 07/06/18 07:50 07/06/18 07:50 Intake & Output 07/05/18 07/06/18 07/07/18 06:59 06:59 06:59 Intake Total 334 774 Output Total 760 1300 Balance -426 -526 Weight 88 kg 87.9 kg General appearance: PRESENT: no acute distress, cooperative, well-developed Head exam: PRESENT: normocephalic Eye exam: PRESENT: conjunctiva pink, EOMI. ABSENT: scleral icterus Ear exam: PRESENT: normal external ear exam Mouth exam: PRESENT: moist, tongue midline Neck exam: ABSENT: carotid bruit, JVD, lymphadenopathy Respiratory exam: PRESENT: rales - At left base. There are of lung mike are clear., symmetrical, unlabored, other - He still has a slightly congested cough.. ABSENT: crackles, stridor, wheezes Cardiovascular exam: PRESENT: irregular rhythm GI/Abdominal exam: PRESENT: normal bowel sounds, soft. ABSENT: distended, tenderness Rectal exam: PRESENT: deferred Extremities exam: PRESENT: pedal edema - Trace. ABSENT: calf tenderness Musculoskeletal exam: PRESENT: ambulatory, full ROM Neurological exam: PRESENT: alert, awake, oriented to person, oriented to place, oriented to time, oriented to situation, CN II-XII grossly intact Psychiatric exam: PRESENT: appropriate affect, normal mood. ABSENT: agitated, anxious Focused psych exam: ABSENT: restlessness Results Laboratory Results: 07/06/18 03:58 07/06/18 03:58 07/06/18 07/06/18 03:58 03:58 WBC 9.1 RBC 4.12 L Hgb 12.6 L Hct 36.8 L MCV 89 MCH 30.6 MCHC 34.2 RDW 14.2 H Plt Count 188 Sodium 138.1 Potassium 3.7 Chloride 103 Carbon Dioxide 26 Anion Gap 9 BUN 23 H Creatinine 0.80 Est GFR ( Amer) > 60 Est GFR (Non-Af Amer) > 60 Glucose 86 Calcium 8.4 Magnesium 1.9 07/03/18 07/03/18 07/03/18 14:15 14:15 19:45 Creatine Kinase 49 L 45 L CK-MB (CK-2) 1.04 Troponin I < 0.012 NT-Pro-B Natriuret Pep 2880 H 07/03/18 07/04/18 07/04/18 19:45 01:51 01:51 Creatine Kinase 39 L CK-MB (CK-2) 0.97 0.81 Troponin I < 0.012 < 0.012 NT-Pro-B Natriuret Pep 07/04/18 07/04/18 07:08 07:08 Creatine Kinase 38 L CK-MB (CK-2) 0.75 Troponin I < 0.012 NT-Pro-B Natriuret Pep Impressions: Chest/Abdomen CTA 07/03/18 16:07 IMPRESSION: 1. NORMAL CTA OF THE CHEST. NO PULMONARY EMBOLI. 2. MODERATELY LARGE BILATERAL PLEURAL EFFUSIONS WITH BASILAR ATELECTASIS. Chest X-Ray 07/06/18 06:00 IMPRESSION: No change in bibasilar airspace disease and pleural trace bilateral pleural effusions compared to 07/03/2018 Qualifiers - * PATIENT BEING DISCHARGED WITH ANY OF THE FOLLOWING DIAGNOSIS: No Plan Discharge Plan: Discharge from the hospital. He will remain in [place] for several weeks visiting his grandson. He will return to [facility] at the beginning of July. Time Spent: Greater than 30 Minutes
== END 2018-07-06 13:48 | disposition home or self-care (01) | DRG 309 ==
LOC: ER 11:26 → EH 16:12 → 3N 23:45
PROVIDERS: ADMIT Hospitalist; ATTEND Hospitalist
PROC: 3E0F73Z Introduction of Anti-inflammatory into Respiratory Tract, Via Natural or Artificial Opening (ICD-10-PCS; principal; 2018-07-05)
DX: I48.91 Unspecified atrial fibrillation (principal); I25.810 Atherosclerosis of coronary artery bypass graft(s) without angina pectoris; I50.9 Heart failure, unspecified; E11.9 Type 2 diabetes mellitus without complications; I11.0 Hypertensive heart disease with heart failure; E78.00 Pure hypercholesterolemia, unspecified; I25.2 Old myocardial infarction; Z79.4 Long term (current) use of insulin; Z79.899 Other long term (current) drug therapy; Z95.1 Presence of aortocoronary bypass graft; Z95.5 Presence of coronary angioplasty implant and graft; Z87.891 Personal history of nicotine dependence; Z79.82 Long term (current) use of aspirin; Z82.49 Family history of ischemic heart disease and other diseases of the circulatory system
CPT/HCPCS: 36415; 71045; 71046; 71275; 80048; 80053; 80061; 81001; 82550; 82553; 82962; 83036; 83735; 83880; 84100; 84484; 85025; 85027; 85610; 85730; 93005; 93010; 94640; 99285; J1815; J3490; J7620

== ENCOUNTER 2018-07-10 14:49 | Inpatient (IN) | payer MEDICARE ==
[2018-07-10] MEDS ORDERED: IPRATROPIUM/ALBUTEROL 0.5-2.5 MG/3 ML AMPUL NEB ONE (16:40)
--- NOTE | 2018-07-10 16:41 | ER Document Report ---
ED Medical Screen (RME) - General Chief Complaint: Shortness Of Breath Stated Complaint: DIFFICULTY BREATHING Time Seen by Provider: 07/10/18 16:34 Mode of Arrival: Ambulatory Information source: Patient Notes: This is a 73-year-old man who presents to the emergency room with shortness of breath, dyspnea on exertion. Patient does have a history of COPD (long history of smoking), atrial fibrillation, coronary artery disease (CABG), diabetes. He was recently admitted for similar symptoms states he left the hospital feeling good but started developing similar symptoms. His reports that he cannot walk 5 feet without getting short of breath. TRAVEL OUTSIDE OF THE [place] IN LAST 30 DAYS: No - Related Data Allergies/Adverse Reactions: No Known Allergies Allergy (Verified 07/04/18 00:10) Past Medical History - Past Medical History Cardiac Medical History: Reports: Hx Atrial Fibrillation, Hx Coronary Artery Disease, Hx Heart Attack - 1994, Hx Hypercholesterolemia, Hx Hypertension Pulmonary Medical History: Reports: Hx COPD Denies: Hx Asthma, Hx Respiratory Failure Endocrine Medical History: Reports: Hx Diabetes Mellitus Type 2 Renal/ Medical History: Denies: Hx Peritoneal Dialysis Past Surgical History: Reports: Hx Cardiac Catheterization - With stents, Hx Cardiac Surgery - CABG, Hx Coronary Artery Bypass Graft Physical Exam - Vital signs Vitals: Temp Pulse Resp BP Pulse Ox 97.5 F 90 28 H 146/96 H 90 L 07/10/18 15:21 07/10/18 15:21 07/10/18 15:21 07/10/18 15:21 07/10/18 15:21 Course - Vital Signs Vital signs: Temp Pulse Resp BP Pulse Ox 97.5 F 90 28 H 146/96 H 90 L 07/10/18 15:21 07/10/18 15:21 07/10/18 15:21 07/10/18 15:21 07/10/18 15:21
[2018-07-10 17:51] LABS: ABSOLUTE BASOPHILS # (AUTO) 0.1 10^3/uL (0.0-0.2); ABSOLUTE MONOCYTES (AUTO) 0.6 10^3/uL (0.1-1.4); ABSOLUTE NEUT (AUTO) 8.5 10^3/uL (1.7-8.2); BASOPHILS % (AUTO) 0.7 % (0-2); EOSINOPHILS % (AUTO) 0.2 % (0-6); HEMATOCRIT 42.3 % (37.9-51.0); HEMOGLOBIN 14.2 g/dL (13.5-17.0); LYMPHOCYTES % (AUTO) 9.8 % (13-45); MEAN CORPUSCULAR HEMOGLOBIN 30.7 pg (27.0-33.4); MEAN CORPUSCULAR HGB CONC 33.6 g/dL (32.0-36.0); MEAN CORPUSCULAR VOLUME 91 fl (80-97); MONOCYTES % (AUTO) 5.7 % (3-13); PLATELET COUNT 222 10^3/uL (150-450); RED BLOOD COUNT 4.63 10^6/uL (4.35-5.55); RED CELL DISTRIBUTION WIDTH 14.5 % (11.5-14.0); SEGMENTED NEUTROPHILS % (AUTO) 83.6 % (42-78); TOTAL CELLS COUNTED % (AUTO) 100 %; WHITE BLOOD COUNT 10.2 10^3/uL (4.0-10.5)
[2018-07-10 18:03] LABS: ALANINE AMINOTRANSFERASE 47 U/L (21-72); ALBUMIN 4.4 g/dL (3.5-5.0); ALKALINE PHOSPHATASE 64 U/L (38-126); ANION GAP 14 (5-19); ASPARTATE AMINO TRANSFERASE 28 U/L (17-59); BILIRUBIN,DIRECT 0.4 mg/dL (0.0-0.4); BILIRUBIN,TOTAL 2.1 mg/dL (0.2-1.3); BLOOD UREA NITROGEN 26 mg/dL (7-20); CALCIUM 9.4 mg/dL (8.4-10.2); CARBON DIOXIDE 28 mmol/L (22-30); CHLORIDE 97 mmol/L (98-107); CREATINE KINASE 44 U/L (55-170); GLUCOSE 171 mg/dL (75-110); SODIUM 139.1 mmol/L (137-145); TOTAL PROTEIN 7.4 g/dL (6.3-8.2)
[2018-07-10 18:15] LABS: CREATINE KINASE MB 0.87 ng/mL (<4.55); TROPONIN I 0.013 ng/mL
--- NOTE | 2018-07-10 18:24 | RADIOLOGY REPORT (SQ) ---
EXAM DESCRIPTION: CHEST SINGLE VIEW COMPLETED DATE/TIME: 07/10/2018 6:12 pm REASON FOR STUDY: short of breath COMPARISON: 07/06/2018 EXAM PARAMETERS: NUMBER OF VIEWS: One view. TECHNIQUE: Single frontal radiographic view of the chest acquired. RADIATION DOSE: NA LIMITATIONS: None. FINDINGS: LUNGS AND PLEURA: Redemonstrated small bilateral pleural effusions and associated atelecta sis or consolidation. MEDIASTINUM AND HILAR STRUCTURES: No masses. Contour normal. HEART AND VASCULAR STRUCTURES: Cardiomegaly status post median sternotomy. BONES: No acute findings. HARDWARE: None in the chest. OTHER: No other significant finding. IMPRESSION: Cardiomegaly with redemonstrated small bilateral pleural effusions and atelectasis or co nsolidation, not significantly changed compared to prior examination. TECHNICAL DOCUMENTATION: JOB ID: [id number] [employer]- All Rights Reserved Reading location - IP/workstation name: [email or web address]
--- NOTE | 2018-07-10 20:52 | EKG REPORT ---
SEVERITY:- ABNORMAL ECG - ATRIAL FIBRILLATION ABNRM R PROG, CONSIDER ASMI OR LEAD PLACEMENT BORDERLINE T ABNORMALITIES, INFERIOR LEADS : Confirmed by: Candis Ferguson 10-Jul-2018 20:50:42
[2018-07-10] MEDS ORDERED: DILTIAZEM HCL/D5W 125 MG/125 ML RTUINJ IV PRN (21:01)
--- NOTE | 2018-07-10 21:02 | ER Document Report ---
ED General - General Chief Complaint: Shortness Of Breath Stated Complaint: DIFFICULTY BREATHING Time Seen by Provider: 07/10/18 16:34 Mode of Arrival: Ambulatory Notes: Patient is a 73-year-old male with a past medical history of atrial fibrillation, hypertension, hyperlipidemia, known history of coronary artery disease with a CABG in the past who presents with 2 days of progressively worsening exertional dyspnea. Patient was hospitalized several days ago, diagnosed with A. fib with rapid ventricular response, discharged home on diltiazem. States that for the first 2 days post discharge she was unable to fill his diltiazem was apparently was not available at the pharmacy where he normally goes. States that he was able to get on diltiazem starting yesterday but has continued to have severe exertional dyspnea. He states that as long as he is sitting still he does not feel short of breath. He denies any associated chest pain. Does note palpitations. No lightheadedness or syncope. Patient is currently visiting from [facility], no local primary care doctor. TRAVEL OUTSIDE OF THE [place] IN LAST 30 DAYS: No - Related Data Allergies/Adverse Reactions: No Known Allergies Allergy (Verified 07/04/18 00:10) Past Medical History - General Information source: Patient - Social History Smoking Status: Former Smoker Frequency of alcohol use: None Drug Abuse: None Lives with: Family Family History: CAD, Thyroid Disfunction Patient has suicidal ideation: No Patient has homicidal ideation: No - Past Medical History Cardiac Medical History: Reports: Hx Atrial Fibrillation, Hx Coronary Artery Disease, Hx Heart Attack - 1994, Hx Hypercholesterolemia, Hx Hypertension Pulmonary Medical History: Reports: Hx COPD Denies: Hx Asthma, Hx Respiratory Failure Endocrine Medical History: Reports: Hx Diabetes Mellitus Type 2 Renal/ Medical History: Denies: Hx Peritoneal Dialysis Past Surgical History: Reports: Hx Cardiac Catheterization - With stents, Hx Cardiac Surgery - CABG, Hx Coronary Artery Bypass Graft Review of Systems - Review of Systems Notes: Constitutional: Negative for fever. HENT: Negative for sore throat. Eyes: Negative for visual changes. Cardiovascular: Positive for palpitations Respiratory: Positive for exertional dyspnea Gastrointestinal: Negative for abdominal pain, vomiting or diarrhea. Genitourinary: Negative for dysuria. Musculoskeletal: Negative for back pain. Skin: Negative for rash. Neurological: Negative for headaches, weakness or numbness. 10 point ROS negative except as marked above and in HPI. Physical Exam - Vital signs Vitals: Temp Pulse Resp BP Pulse Ox 97.5 F 90 28 H 146/96 H 90 L 07/10/18 15:21 07/10/18 15:21 07/10/18 15:21 07/10/18 15:21 07/10/18 15:21 Interpretation: Tachycardic, Tachypneic Notes: PHYSICAL EXAMINATION: GENERAL: Well-appearing, well-nourished and in no acute distress. HEAD: Atraumatic, normocephalic. EYES: Pupils equal round and reactive to light, extraocular movements intact, sclera anicteric, conjunctiva are normal. ENT: nares patent, oropharynx clear without exudates. Moist mucous membranes. NECK: Normal range of motion, supple without lymphadenopathy LUNGS: Breath sounds clear to auscultation bilaterally and equal. No wheezes rales or rhonchi. HEART: Irregular regular tachycardia without murmurs ABDOMEN: Soft, nontender, normoactive bowel sounds. No guarding, no rebound. No masses appreciated. EXTREMITIES: Normal range of motion, no pitting or edema. No cyanosis. NEUROLOGICAL: No focal neurological deficits. Moves all extremities spontaneously and on command. PSYCH: Normal mood, normal affect. SKIN: Warm, Dry, normal turgor, no rashes or lesions noted. Course - Re-evaluation Re-evalutation: 07/10/18 21:01 Patient presents in A. fib with rapid ventricular response with exertional dyspnea. Recently discharged but was unable to get his diltiazem dosing for the first several days. The patient has been on diltiazem 60 mg p.o. twice daily since that time apparently something that was dispensed from the hospital after he returned after being unable to fill his prescription for 2 days. The patient's heart rate ranges anywhere from 98-156 while I am in the room. The patient reports that whenever he gets up and exerts himself in any fashion he becomes extremely dyspneic and I suspect that this is due to his unregulated A. fib with rapid ventricular response. Chest x-ray is on change from previous, does not show any worsening of previously noted pleural effusions or pulmonary edema. His BNP is actually decreased although his weight has increased by approximately 1 kg. I have restarted the patient on diltiazem infusion. Will discuss with the hospitalist for readmission so that we can get the patient's heart rate resettled and ensure that he is able to tolerate exertion without difficulty. Of note I do not clinically suspect an acute pulmonary embolus. Had a CTA of his chest 7 days ago which was noted to be normal. I discussed thi s case with the hospitalist Dr. Vasquez who has accepted the patient for admission. - Vital Signs Vital signs: Temp Pulse Resp BP Pulse Ox 98.3 F 53 L 16 148/88 H 94 07/10/18 19:45 07/11/18 03:22 07/11/18 03:22 07/10/18 23:45 07/11/18 03:22 - Laboratory Result Diagrams: 07/11/18 03:31 07/11/18 03:31 Laboratory results interpreted by me: 07/10/18 07/10/18 07/10/18 17:28 17:28 17:28 RDW 14.5 H Seg Neutrophils % 83.6 H Lymphocytes % 9.8 L Absolute Neutrophils 8.5 H Chloride 97 L BUN 26 H Glucose 171 H Total Bilirubin 2.1 H Creatine Kinase 44 L NT-Pro-B Natriuret Pep 1210 H Urine Protein Urine Glucose (UA) Urine Ketones Urine Urobilinogen 07/10/18 07/10/18 20:00 21:15 RDW Seg Neutrophils % Lymphocytes % Absolute Neutrophils Chloride BUN Glucose Total Bilirubin Creatine Kinase 34 L NT-Pro-B Natriuret Pep Urine Protein 100 H Urine Glucose (UA) 50 H Urine Ketones 20 H Urine Urobilinogen 2.0 H - Diagnostic Test Radiology reviewed: Image reviewed, Reports reviewed Radiology results interpreted by me: 07/10/18 21:04 Chest x-ray: Bibasilar pleural effusions, cardiomegaly, no acute changes - EKG Interpretation by Me Additional EKG results interpreted by me: 07/11/18 04:13 Atrial figuration with rapid ventricular response. Rate 103. No ST elevations or depressions. QTC is 482. Discharge - Discharge Clinical Impression: SOB (shortness of breath), Atrial fibrillation with rapid ventricular response Condition: Fair Disposition: ADMITTED INPATIENT Admitting Provider: Hospitalist Unit Admitted: Telemetry
[2018-07-10] MEDS ORDERED: MAG HYDROX/AL HYDROX/SIMETH SUSP 30 ML UDCUP PO PRN (21:04)
[2018-07-10] MEDS ORDERED: ACETAMINOPHEN 325 MG TABLET PO PRN (21:04)
[2018-07-10 21:07] LABS: APPEARANCE,URINE TURBID; BILIRUBIN,URINE NEGATIVE (NEGATIVE); COLOR,URINE YELLOW; GLUCOSE, URINE 50 mg/dL (NEGATIVE); KETONES,URINE 20 mg/dL (NEGATIVE); LEUKOCYTE ESTERASE,URINE NEGATIVE (NEGATIVE); NITRITE,URINE NEGATIVE (NEGATIVE); PROTEIN,URINE 100 mg/dL (NEGATIVE); URINE SPECIFIC GRAVITY 1.024
[2018-07-10] MEDS ORDERED: (PENDING PHARMACY ID) (Diltiazem Hcl [Diltiazem 12hr Er] 60 MG) PO SCH (21:15)
[2018-07-10] MEDS: FAMOTIDINE 20 MG TABLET PO SCH (21:27)
[2018-07-10] MEDS: ATORVASTATIN CALCIUM 20 MG TABLET PO SCH (21:27)
[2018-07-10] MEDS: METOPROLOL TARTRATE 50 MG TABLET PO SCH (21:27)
[2018-07-10 21:54] LABS: CREATINE KINASE MB 0.74 ng/mL (<4.55)
[2018-07-10 21:58] LABS: TROPONIN I < 0.012 ng/mL
[2018-07-10] MEDS ORDERED: LACTULOSE SYRUP 20 GM/30 ML UDCUP PO ONE (22:20)
[2018-07-10] MEDS ORDERED: DOXYCYCLINE HYCLATE 100 MG TABLET PO ONE (23:00)
[2018-07-10] MEDS: DILTIAZEM HCL 60 MG TABLET PO SCH (23:15)
[2018-07-10] MEDS ORDERED: CHLORPHENIRAMINE MALEATE 4 MG TABLET PO ONE (23:21)
[2018-07-10] MEDS ORDERED: INSULIN GLARGINE,HUM.REC.ANLOG 300 UNIT/3 ML INSULN.PEN SUBCUT ONE (23:28)
[2018-07-10] MEDS ORDERED: DILTIAZEM HCL 60 MG TABLET ONE (23:29)
[2018-07-10] MEDS ORDERED: FLUTICASONE NASAL SPRAY 50 MCG/SPRY 120 SPRAY/16 GM NASL ONE (23:30)
[2018-07-10] MEDS: INSULIN GLARGINE,HUM.REC.ANLOG 300 UNIT/3 ML INSULN.PEN SUBCUT SCH (23:37)
[2018-07-11] MEDS ORDERED: DOXYCYCLINE HYCLATE INJ 100 MG VIAL ONE (00:38)
[2018-07-11] MEDS ORDERED: FLUTICASONE NASAL SPRAY 50 MCG/SPRY 120 SPRAY/16 GM ONE (00:38)
[2018-07-11] MEDS ORDERED: CHLORPHENIRAMINE MALEATE 4 MG TABLET ONE (00:43)
[2018-07-11] MEDS ORDERED: DOXYCYCLINE HYCLATE 100 MG TABLET PO ONE (01:06)
[2018-07-11] MEDS ORDERED: LEVALBUTEROL HCL NEB 1.25 MG/3 ML AMPUL NEB ONE (03:00)
--- NOTE | 2018-07-11 03:26 | PDOC H&P ---
History of Present Illness Admission Date/PCP: 07/10/18 21:34 Patient complains of: Palpitations and shortness of breath History of Present Illness: COOPER AMADOR is a 73 year old male with a past medical history of atrial fibrillation recently discharged from [facility] for A. fib with RVR but unable to fill prescription. He returns after adjustment of medication for which she complies but is found to have intractable fatigue palpitations and tachycardia. In the emergency room is found to have A. fib with RVR ranging from 100-150. He is referred to the hospitalist for admission. He denies chest pain nausea vomiting diaphoresis or shortness of breath. He admits rhinorrhea, postnasal drip and a persistent nonproductive cough. Past Medical History Cardiac Medical History: Reports: Atrial Fibrillation, Coronary Artery Disease, Myocardial Infarction - 1994, Hyperlipidema, Hypertension Pulmonary Medical History: Reports: Chronic Obstructive Pulmonary Disease (COPD) Denies: Asthma, Respiratory Failure Endocrine Medical History: Reports: Diabetes Mellitus Type 2 Past Surgical History Past Surgical History: Reports: Cardiac Catheterization - With stents, Coronary Artery Bypass Graft Social History Information Source: Patient, [facility] Lives with: Family Smoking Status: Former Smoker Frequency of Alcohol Use: Occasional Hx Recreational Drug Use: No Drugs: None Hx Prescription Drug Abuse: No - Advance Directive Resuscitation Status: Full Code Family History Family History: CAD, Thyroid Disfunction Parental Family History Reviewed: Yes Children Family History Reviewed: Yes Sibling(s) Family History Reviewed.: Yes Medication/Allergy Home Medications: Atorvastatin Calcium [Lipitor 20 mg Tablet] 20 mg PO DAILY 07/03/18 Insulin Glargine,Hum.rec.anlog [Lantus Insulin 100 Unit/mL] 35 unit SQ QHS 07/03/18 Metformin HCl 1,000 mg PO BID 07/03/18 Ramipril [Altace 5 mg Capsule] 5 mg PO QHS 07/03/18 Apixaban [Eliquis 5 mg Tablet] 5 mg PO BID 30 Days #60 tablet 07/06/18 Aspirin [Aspirin 81 mg Chewable Tablet] 81 mg PO DAILY tab.chew 07/06/18 Diltiazem HCl [Diltiazem 12Hr ER] 60 mg PO Q6H 30 Days #120 cap.er.12h 07/06/18 Famotidine [Pepcid 20 mg Tablet] 20 mg PO Q12 tablet 07/06/18 Furosemide [Lasix 20 mg Tablet] 20 mg PO DAILY 30 Days #30 tablet 07/06/18 Metoprolol Tartrate [Lopressor 50 mg Tablet] 100 mg PO Q12 tablet 07/06/18 Metoprolol Tartrate [Lopressor] 100 mg PO BID 30 Days #60 tablet 07/06/18 Allergies/Adverse Reactions: No Known Allergies Allergy (Verified 07/04/18 00:10) Review of Systems Constitutional: PRESENT: fatigue, weakness. ABSENT: chills, fever(s), headache(s), weight gain, weight loss Eyes: ABSENT: visual disturbances Ears: ABSENT: hearing changes Cardiovascular: PRESENT: as per HPI, dyspnea on exertion, palpitations. ABSENT: chest pain, edema, orthropnea Respiratory: ABSENT: cough, hemoptysis Gastrointestinal: ABSENT: abdominal pain, constipation, diarrhea, hematemesis, hematochezia, nausea, vomiting Genitourinary: ABSENT: dysuria, hematuria Musculoskeletal: ABSENT: joint swelling Integumentary: ABSENT: rash, wounds Neurological: ABSENT: abnormal gait, abnormal speech, confusion, dizziness, focal weakness, syncope Psychiatric: ABSENT: anxiety, depression, homidical ideation, suicidal ideation Endocrine: ABSENT: cold intolerance, heat intolerance, polydipsia, polyuria Hematologic/Lymphatic: ABSENT: easy bleeding, easy bruising Physical Exam Vital Signs: Temp Pulse Resp BP Pulse Ox 98.3 F 90 20 148/88 H 93 07/10/18 19:45 07/10/18 15:21 07/10/18 23:45 07/10/18 23:45 07/10/18 23:30 Intake & Output 07/09/18 07/10/18 07/11/18 11:59 11:59 11:59 Intake Total 6 Balance 6 Weight 88.8 kg General appearance: PRESENT: no acute distress, cooperative. ABSENT: hard of hearing, mild distress Head exam: PRESENT: atraumatic, normocephalic Eye exam: PRESENT: conjunctiva pink, EOMI, PERRLA. ABSENT: scleral icterus Ear exam: PRESENT: normal external ear exam Mouth exam: PRESENT: moist, tongue midline Neck exam: ABSENT: carotid bruit, JVD, lymphadenopathy, thyromegaly Respiratory exam: PRESENT: accessory muscle use, clear to auscultation robert, crackles, prolonged expiratory phas. ABSENT: rales, rhonchi, wheezes Cardiovascular exam: PRESENT: irregular rhythm, tachycardia. ABSENT: diastolic murmur, rubs, systolic murmur Pulses: PRESENT: normal dorsalis pedis pul Vascular exam: PRESENT: normal capillary refill GI/Abdominal exam: PRESENT: normal bowel sounds, soft. ABSENT: distended, guar ding, mass, organolmegaly, rebound, tenderness Rectal exam: PRESENT: deferred Extremities exam: PRESENT: full ROM. ABSENT: calf tenderness, clubbing, pedal edema Neurological exam: PRESENT: alert, awake, oriented to person, oriented to place, oriented to time, oriented to situation, CN II-XII grossly intact. ABSENT: motor sensory deficit Psychiatric exam: PRESENT: appropriate affect, normal mood. ABSENT: homicidal ideation, suicidal ideation Skin exam: PRESENT: dry, intact, warm. ABSENT: cyanosis, rash Results Laboratory Results: 07/10/18 17:28 07/10/18 17:28 07/10/18 07/10/18 07/10/18 17:28 17:28 20:00 WBC 10.2 RBC 4.63 Hgb 14.2 Hct 42.3 MCV 91 MCH 30.7 MCHC 33.6 RDW 14.5 H Plt Count 222 Seg Neutrophils % 83.6 H Lymphocytes % 9.8 L Monocytes % 5.7 Eosinophils % 0.2 Basophils % 0.7 Absolute Neutrophils 8.5 H Absolute Lymphocytes 1.0 Absolute Monocytes 0.6 Absolute Eosinophils 0.0 Absolute Basophils 0.1 Sodium 139.1 Potassium 5.0 Chloride 97 L Carbon Dioxide 28 Anion Gap 14 BUN 26 H Creatinine 0.88 Est GFR ( Amer) > 60 Est GFR (Non-Af Amer) > 60 Glucose 171 H Calcium 9.4 Total Bilirubin 2.1 H AST 28 ALT 47 Alkaline Phosphatase 64 Total Protein 7.4 Albumin 4.4 Urine Color YELLOW Urine Appearance TURBID Urine pH 5.0 Ur Specific [place] 1.024 Urine Protein 100 H Urine Glucose (UA) 50 H Urine Ketones 20 H Urine Blood NEGATIVE Urine Nitrite NEGATIVE Ur Leukocyte Esterase NEGATIVE Urine WBC (Auto) 2 07/10/18 07/10/18 07/10/18 17:28 17:28 17:28 Creatine Kinase 44 L CK-MB (CK-2) 0.87 Troponin I 0.013 NT-Pro-B Natriuret Pep 1210 H 07/10/18 07/10/18 21:15 21:15 Creatine Kinase 34 L CK-MB (CK-2) 0.74 Troponin I < 0.012 NT-Pro-B Natriuret Pep Impressions: Chest X-Ray 07/10/18 15:23 IMPRESSION: Cardiomegaly with redemonstrated small bilateral pleural effusions and atelectasis or consolidation, not significantly changed compared to prior examination. Assessment & Plan - Diagnosis (1) Atrial fibrillation with rapid ventricular response Is this a current diagnosis for this admission?: Yes Plan: Decompensated most likely secondary to URI and and COPD exacerbation. Limit albuterol, continue Cardizem 60 every 6 hours, Lopressor 75 every 12 hours, optimize as needed. (2) COPD exacerbation Is this a current diagnosis for this admission?: Yes Plan: Xopenex, Flonase, doxycycline. Consider steroids (3) Acute bronchitis Is this a current diagnosis for this admission?: Yes Plan: Please see #2, supplemental oxygen and PEEP valve - Time Time Spent: 30 to 50 Minutes
[2018-07-11 03:39] LABS: ABSOLUTE BASOPHILS # (AUTO) 0.1 10^3/uL (0.0-0.2); ABSOLUTE EOSINOPHILS # (AUTO) 0.1 10^3/uL (0.0-0.6); ABSOLUTE LYMPHOCYTES (AUTO) 1.3 10^3/uL (0.5-4.7); ABSOLUTE MONOCYTES (AUTO) 0.7 10^3/uL (0.1-1.4); ABSOLUTE NEUT (AUTO) 8.8 10^3/uL (1.7-8.2); BASOPHILS % (AUTO) 0.9 % (0-2); EOSINOPHILS % (AUTO) 0.5 % (0-6); HEMATOCRIT 39.4 % (37.9-51.0); HEMOGLOBIN 13.4 g/dL (13.5-17.0); LYMPHOCYTES % (AUTO) 11.8 % (13-45); MEAN CORPUSCULAR HGB CONC 34.1 g/dL (32.0-36.0); MEAN CORPUSCULAR VOLUME 91 fl (80-97); MONOCYTES % (AUTO) 6.6 % (3-13); PLATELET COUNT 187 10^3/uL (150-450); RED BLOOD COUNT 4.34 10^6/uL (4.35-5.55); RED CELL DISTRIBUTION WIDTH 14.5 % (11.5-14.0); SEGMENTED NEUTROPHILS % (AUTO) 80.2 % (42-78); TOTAL CELLS COUNTED % (AUTO) 100 %
[2018-07-11 03:58] LABS: ANION GAP 12 (5-19); BLOOD UREA NITROGEN 29 mg/dL (7-20); CALCIUM 9.1 mg/dL (8.4-10.2); CARBON DIOXIDE 25 mmol/L (22-30); CHLORIDE 101 mmol/L (98-107); GLUCOSE 182 mg/dL (75-110); POTASSIUM 4.6 mmol/L (3.6-5.0); SODIUM 137.5 mmol/L (137-145)
[2018-07-11 04:08] LABS: CREATINE KINASE MB 0.71 ng/mL (<4.55)
[2018-07-11 04:09] LABS: TROPONIN I < 0.012 ng/mL
[2018-07-11] MEDS: DILTIAZEM HCL 60 MG TABLET PO SCH ×3 (06:12→18:36)
[2018-07-11] MEDS: FLUTICASONE NASAL SPRAY 50 MCG/SPRY 120 SPRAY/16 GM NASL SCH ×2 (09:27→21:18)
[2018-07-11] MEDS: METOPROLOL TARTRATE 50 MG TABLET PO SCH ×2 (09:28→21:19)
[2018-07-11] MEDS: APIXABAN 5 MG TABLET PO SCH ×2 (09:29→18:36)
[2018-07-11] MEDS: ASPIRIN 81 MG TABLET, CHEWABLE PO SCH (09:29)
[2018-07-11] MEDS: FAMOTIDINE 20 MG TABLET PO SCH ×2 (09:29→21:20)
[2018-07-11] MEDS ORDERED: LEVALBUTEROL HCL NEB 1.25 MG/3 ML AMPUL NEB PRN (10:04)
[2018-07-11] MEDS: DOXYCYCLINE HYCLATE 100 MG TABLET PO SCH ×2 (10:12→21:20)
[2018-07-11 10:29] LABS: CREATINE KINASE MB 0.75 ng/mL (<4.55)
[2018-07-11 10:33] LABS: TROPONIN I < 0.012 ng/mL
[2018-07-11] MEDS ORDERED: GUAIFENESIN SYRP 200 MG/10 ML UDC PO PRN (12:09)
--- NOTE | 2018-07-11 12:19 | PDOC PROGRESS REPORT ---
Subjective Progress Note for:: 07/11/18 Subjective:: The patient is a very pleasant 73-year-old male with a past medical history of atrial fibrillation, CAD, HI, hyperlipidemia, hypertension, and COPD who was admitted 07/11/2018 for atrial fibrillation with RVR and a COPD exacerbation with bronchitis. Patient was seen on morning rounds with his present. He was found sitting up to the recliner, comfortably on room air. He reports that his shortness of breath and palpitations have resolved, however, he does continue to have a frequent productive cough. He also complains of a slight sore throat that he relates to postnasal drip. He denies fever, chills, headache, dizziness, chest pain, orthopnea, dyspnea on exertion, abdominal pain, nausea vomiting and diarrhea. He has no new questions at this time. No concerns per nursing. Reason For Visit: AFIB Physical Exam Vital Signs: Temp Pulse Resp BP Pulse Ox 97.3 F 68 16 143/92 H 94 07/11/18 08:24 07/11/18 08:24 07/11/18 08:24 07/11/18 08:24 07/11/18 08:24 Intake & Output 07/10/18 07/11/18 07/12/18 06:59 06:59 06:59 Intake Total 156 119 Output Total 100 Balance 56 119 Weight 86.5 kg General appearance: PRESENT: no acute distress, cooperative, well-developed, well-nourished - Overweight Head exam: PRESENT: atraumatic, normocephalic Eye exam: PRESENT: conjunctiva pink, EOMI, PERRLA. ABSENT: scleral icterus Ear exam: PRESENT: normal external ear exam Mouth exam: PRESENT: moist, tongue midline Neck exam: ABSENT: carotid bruit, JVD, lymphadenopathy, thyromegaly Respiratory exam: PRESENT: decreased breath sounds - Bibasilar; L>R, rhonchi, symmetrical, unlabored, wheezes. ABSENT: rales Cardiovascular exam: PRESENT: irregular rhythm, +S1, +S2. ABSENT: diastolic murmur, rubs, systolic murmur Pulses: PRESENT: normal dorsalis pedis pul Vascular exam: PRESENT: normal capillary refill GI/Abdominal exam: PRESENT: normal bowel sounds, soft. ABSENT: distended, guarding, mass, organolmegaly, rebound, tenderness Rectal exam: PRESENT: deferred Extremities exam: PRESENT: full ROM. ABSENT: calf tenderness, clubbing, pedal edema Neurological exam: PRESENT: alert, awake, oriented to person, oriented to place, oriented to time, oriented to situation, CN II-XII grossly intact. ABSENT: motor sensory deficit Psychiatric exam: PRESENT: appropriate affect, normal mood. ABSENT: homicidal ideation, suicidal ideation Skin exam: PRESENT: dry, intact, warm. ABSENT: cyanosis, rash Results Laboratory Results: 07/11/18 03:31 07/11/18 03:31 07/10/18 07/10/18 07/10/18 17:28 17:28 20:00 WBC 10.2 RBC 4.63 Hgb 14.2 Hct 42.3 MCV 91 MCH 30.7 MCHC 33.6 RDW 14.5 H Plt Count 222 Seg Neutrophils % 83.6 H Lymphocytes % 9.8 L Monocytes % 5.7 Eosinophils % 0.2 Basophils % 0.7 Absolute Neutrophils 8.5 H Absolute Lymphocytes 1.0 Absolute Monocytes 0.6 Absolute Eosinophils 0.0 Absolute Basophils 0.1 Sodium 139.1 Potassium 5.0 Chloride 97 L Carbon Dioxide 28 Anion Gap 14 BUN 26 H Creatinine 0.88 Est GFR ( Amer) > 60 Est GFR (Non-Af Amer) > 60 Glucose 171 H Calcium 9.4 Total Bilirubin 2.1 H AST 28 ALT 47 Alkaline Phosphatase 64 Total Protein 7.4 Albumin 4.4 Urine Color YELLOW Urine Appearance TURBID Urine pH 5.0 Ur Specific [place] 1.024 Urine Protein 100 H Urine Glucose (UA) 50 H Urine Ketones 20 H Urine Blood NEGATIVE Urine Nitrite NEGATIVE Ur Leukocyte Esterase NEGATIVE Urine WBC (Auto) 2 07/11/18 07/11/18 03:31 03:31 WBC 11.0 H RBC 4.34 L Hgb 13.4 L Hct 39.4 MCV 91 MCH 31.0 MCHC 34.1 RDW 14.5 H Plt Count 187 Seg Neutrophils % 80.2 H Lymphocytes % 11.8 L Monocytes % 6.6 Eosinophils % 0.5 Basophils % 0.9 Absolute Neutrophils 8.8 H Absolute Lymphocytes 1.3 Absolute Monocytes 0.7 Absolute Eosinophils 0.1 Absolute Basophils 0.1 Sodium 137.5 Potassium 4.6 Chloride 101 Carbon Dioxide 25 Anion Gap 12 BUN 29 H Creatinine 0.71 Est GFR ( Amer) > 60 Est GFR (Non-Af Amer) > 60 Glucose 182 H Calcium 9.1 Total Bilirubin AST ALT Alkaline Phosphatase Total Protein Albumin Urine Color Urine Appearance Urine pH Ur Specific [place] Urine Protein Urine Glucose (UA) Urine Ketones Urine Blood Urine Nitrite Ur Leukocyte Esterase Urine WBC (Auto) 07/10/18 07/10/18 07/10/18 17:28 17:28 17:28 Creatine Kinase 44 L CK-MB (CK-2) 0.87 Troponin I 0.013 NT-Pro-B Natriuret Pep 1210 H 07/10/18 07/10/18 07/11/18 21:15 21:15 03:31 Creatine Kinase 34 L 37 L CK-MB (CK-2) 0.74 Troponin I < 0.012 NT-Pro-B Natriuret Pep 07/11/18 07/11/18 07/11/18 03:31 09:26 09:26 Creatine Kinase 37 L CK-MB (CK-2) 0.71 0.75 Troponin I < 0.012 < 0.012 NT-Pro-B Natriuret Pep Impressions: Chest X-Ray 07/10/18 15:23 IMPRESSION: Cardiomegaly with redemonstrated small bilateral pleural effusions and atelectasis or consolidation, not significantly changed compared to prior examination. Assessment & Plan - Diagnosis (1) Atrial fibrillation with rapid ventricular response Is this a current diagnosis for this admission?: Yes Plan: Secondary to delay in obtaining new prescription for diltiazem (patient report that the pharmacy had to order this and so he did not receive it for 2-3 days following his discharge earlier this week) and COPD exacerbation. He remains in atrial fibrillation, though now rate controlled in the 70s. He is admitted to the medical floor on continuous cardiac telemetry. Continuing his home dose Cardizem 60 mg every 6 hours. He was placed on Lopressor 75 mg every 12 hours. Continue home dose Eliquis and daily aspirin. (2) COPD exacerbation Is this a current diagnosis for this admission?: Yes Plan: Chest x-ray is unchanged from 07/06/18; minimal bilateral pleural effusions with atelectasis/consolidations. We will provide supplemental oxygen as needed to maintain oxygen saturations. Nebulizers as needed. Daily Flonase. Start doxycycline secondary to patient's increased sputum production. He is noted to have a slight wheeze today; however, this clears after cough. Will monitor closely for need for steroid therapy. Robitussin every 4 hours as needed for cough. Incentive spirometer and flutter valve to bedside. (3) Acute bronchitis Is this a current diagnosis for this admission?: Yes Plan: Secondary to #2; regiment as above. (4) Diabetes mellitus type 2, insulin dependent Is this a current diagnosis for this admission?: Yes Plan: The patient's oral diabetic agents are held. He is placed on a consistent carb diet. Continue home dose Lantus. Accu-Cheks before meals and at bedtime with Humalog for sliding scale coverage. - Time Time Spent with patient: 15-24 minutes Medications reviewed and adjusted accordingly: Yes Anticipated discharge: Home Within: within 24 hours
[2018-07-11] MEDS ORDERED: DEXTROSE 40% GEL 15 GM TUBE X 2 PO PRN (18:00)
[2018-07-11] MEDS ORDERED: DEXTROSE 40% GEL 15 GM TUBE PO PRN (18:00)
[2018-07-11] MEDS ORDERED: DEXTROSE 50%-WATER SYRINGE 12.5 GM/25 ML DOSE IV PRN (18:00)
[2018-07-11] MEDS ORDERED: DEXTROSE 50%-WATER SYRINGE 25 GM/50 ML DOSE IV PRN (18:00)
[2018-07-11] MEDS ORDERED: GLUCAGON,HUMAN RECOMB 1 MG INJ IM PRN (18:00)
[2018-07-11] MEDS: INSULIN LISPRO 100 UNIT/ML 3 ML VIAL SUBCUT PRN ×2 (18:35→21:19)
[2018-07-11] MEDS: INSULIN GLARGINE,HUM.REC.ANLOG 300 UNIT/3 ML INSULN.PEN SUBCUT SCH (21:18)
[2018-07-11] MEDS: ATORVASTATIN CALCIUM 20 MG TABLET PO SCH (21:20)
[2018-07-12] MEDS: DILTIAZEM HCL 60 MG TABLET PO SCH ×5 (01:35→23:09)
[2018-07-12] MEDS: FLUTICASONE NASAL SPRAY 50 MCG/SPRY 120 SPRAY/16 GM NASL SCH ×2 (09:36→21:50)
[2018-07-12] MEDS: ASPIRIN 81 MG TABLET, CHEWABLE PO SCH (09:36)
[2018-07-12] MEDS: METOPROLOL TARTRATE 50 MG TABLET PO SCH ×2 (09:37→21:50)
[2018-07-12] MEDS: DOXYCYCLINE HYCLATE 100 MG TABLET PO SCH ×2 (09:37→21:53)
[2018-07-12] MEDS: APIXABAN 5 MG TABLET PO SCH ×2 (09:37→17:38)
[2018-07-12] MEDS: FAMOTIDINE 20 MG TABLET PO SCH ×2 (09:37→21:50)
[2018-07-12] MEDS ORDERED: METHYLPREDNISOLONE INJ 125 MG/2 ML SDV IV ONE (10:00)
[2018-07-12 10:28] LABS: HEMATOCRIT 41.1 % (37.9-51.0); HEMOGLOBIN 13.9 g/dL (13.5-17.0); MEAN CORPUSCULAR HEMOGLOBIN 30.7 pg (27.0-33.4); MEAN CORPUSCULAR HGB CONC 33.7 g/dL (32.0-36.0); MEAN CORPUSCULAR VOLUME 91 fl (80-97); PLATELET COUNT 181 10^3/uL (150-450); RED BLOOD COUNT 4.51 10^6/uL (4.35-5.55); RED CELL DISTRIBUTION WIDTH 14.4 % (11.5-14.0); WHITE BLOOD COUNT 9.9 10^3/uL (4.0-10.5)
[2018-07-12 10:43] LABS: ANION GAP 13 (5-19); BLOOD UREA NITROGEN 30 mg/dL (7-20); CALCIUM 9.1 mg/dL (8.4-10.2); CARBON DIOXIDE 27 mmol/L (22-30); CHLORIDE 96 mmol/L (98-107); GLUCOSE 277 mg/dL (75-110); POTASSIUM 4.8 mmol/L (3.6-5.0); SODIUM 135.9 mmol/L (137-145)
[2018-07-12] MEDS: IPRATROPIUM/ALBUTEROL 0.5-2.5 MG/3 ML AMPUL NEB SCH ×2 (11:02→15:47)
--- NOTE | 2018-07-12 11:08 | PDOC PROGRESS REPORT ---
Subjective Progress Note for:: 07/12/18 Subjective:: The patient is a very pleasant 73-year-old male with a past medical history of atrial fibrillation, CAD, [place], hyperlipidemia, hypertension, and COPD who was admitted 07/11/2018 for atrial fibrillation with RVR and a COPD exacerbation with bronchitis. Patient was seen on morning rounds with his present. He was found sitting up to the recliner on supplemental oxygen at 2 L/min. He is not home O2 dependent. He became dizzy, tachypneic, and tachycardic overnight. He was found to have an oxygen saturation in the mid 80s that improved following nebulizer treatments and administration of oxygen. The patient states that he continues to feel short of breath with mild exertion, but is comfortable at rest. He continues to have a slightly productive cough. He denies fever, chills, headache, dizziness, chest pain, orthopnea, abdominal pain, nausea vomiting and diarrhea. He has no other questions or concerns at this time. Reason For Visit: AFIB Physical Exam Vital Signs: Temp Pulse Resp BP Pulse Ox 97.4 F 88 18 131/97 H 92 07/12/18 08:10 07/12/18 08:22 07/12/18 08:22 07/12/18 08:10 07/12/18 08:22 Intake & Output 07/11/18 07/12/18 07/13/18 06:59 06:59 06:59 Intake Total 156 1487 Output Total 100 400 Balance 56 1087 Weight 86.5 kg 87.1 kg General appearance: PRESENT: no acute distress, cooperative - Very pleasant, well-developed, well-nourished - Overweight Head exam: PRESENT: atraumatic, normocephalic Eye exam: PRESENT: conjunctiva pink, EOMI, PERRLA. ABSENT: scleral icterus Ear exam: PRESENT: normal external ear exam Mouth exam: PRESENT: moist, tongue midline Neck exam: ABSENT: carotid bruit, JVD, lymphadenopathy, thyromegaly Respiratory exam: PRESENT: decreased breath sounds - Bibasilar, prolonged expiratory phas, rhonchi - Course throughout, symmetrical, tachypnea, unlabored, wheezes - Expiratory wheezing throughout, other - Supplemental oxygen at 2 L/min. ABSENT: rales Cardiovascular exam: PRESENT: irregular rhythm, +S1, +S2. ABSENT: diastolic murmur, rubs, systolic murmur Pulses: PRESENT: normal dorsalis pedis pul Vascular exam: PRESENT: normal capillary refill GI/Abdominal exam: PRESENT: normal bowel sounds, soft. ABSENT: distended, guarding, mass, organolmegaly, rebound, tenderness Rectal exam: PRESENT: deferred Extremities exam: PRESENT: full ROM. ABSENT: calf tenderness, clubbing, pedal edema Neurological exam: PRESENT: alert, awake, oriented to person, oriented to place, oriented to time, oriented to situation, CN II-XII grossly intact. ABSENT: motor sensory deficit Psychiatric exam: PRESENT: appropriate affect, normal mood. ABSENT: homicidal ideation, suicidal ideation Skin exam: PRESENT: dry, intact, warm. ABSENT: cyanosis, rash Results Laboratory Results: 07/12/18 10:10 07/12/18 10:10 07/12/18 07/12/18 10:10 10:10 WBC 9.9 RBC 4.51 Hgb 13.9 Hct 41.1 MCV 91 MCH 30.7 MCHC 33.7 RDW 14.4 H Plt Count 181 Sodium 135.9 L Potassium 4.8 Chloride 96 L Carbon Dioxide 27 Anion Gap 13 BUN 30 H Creatinine 0.68 Est GFR ( Amer) > 60 Est GFR (Non-Af Amer) > 60 Glucose 277 H Calcium 9.1 07/10/18 07/10/18 07/10/18 17:28 17:28 17:28 Creatine Kinase 44 L CK-MB (CK-2) 0.87 Troponin I 0.013 NT-Pro-B Natriuret Pep 1210 H 07/10/18 07/10/18 07/11/18 21:15 21:15 03:31 Creatine Kinase 34 L 37 L CK-MB (CK-2) 0.74 Troponin I < 0.012 NT-Pro-B Natriuret Pep 07/11/18 07/11/18 07/11/18 03:31 09:26 09:26 Creatine Kinase 37 L CK-MB (CK-2) 0.71 0.75 Troponin I < 0.012 < 0.012 NT-Pro-B Natriuret Pep 07/12/18 10:10 Creatine Kinase CK-MB (CK-2) Troponin I NT-Pro-B Natriuret Pep 1290 H Assessment & Plan - Diagnosis (1) Atrial fibrillation with rapid ventricular response Is this a current diagnosis for this admission?: Yes Plan: Now rate controlled on p.o. diltiazem and metoprolol. Secondary to delay in obtaining new prescription for diltiazem (patient report that the pharmacy had to order this and so he did not receive it for 2-3 days following his discharge earlier this week) and COPD exacerbation. He remains in atrial fibrillation, though now rate controlled in the 70s-80s. He is admitted to the medical floor on continuous cardiac telemetry. Continuing his home dose Cardizem 60 mg every 6 hours. Continue Lopressor 75 mg every 12 hours. Continue home dose Eliquis and daily aspirin. (2) COPD exacerbation Is this a current diagnosis for this admission?: Yes Plan: Chest x-ray is unchanged from 07/06/18; minimal bilateral pleural effusions with atelectasis/consolidations. Repeat chest x-ray today. We will provide supplemental oxygen as needed to maintain oxygen saturations. Scheduled and nebulizers as needed. Daily Flonase. Continue doxycycline secondary to patient's increased sputum production. IV Solu-Medrol x1 today followed by p.o. prednisone beginning tomorrow. Mucinex twice daily. Robitussin every 4 hours as needed for cough. Incentive spirometer and flutter valve to bedside. (3) Acute bronchitis Is this a current diagnosis for this admission?: Yes Plan: Secondary to #2; regiment as above. (4) Diabetes mellitus type 2, insulin dependent Is this a current diagnosis for this admission?: Yes Plan: The patient's oral diabetic agents are held. He is placed on a consistent carb diet. Continue home dose Lantus. Accu-Cheks before meals and at bedtime with Humalog for sliding scale coverage. (5) Acute respiratory failure with hypoxia Is this a current diagnosis for this admission?: Yes Plan: Patient became dizzy, tachypneic, and tachycardic overnight. Found to have oxygen saturations in the mid 80s. CBC this morning is reassuring. ProBNP is unchanged at 1200. Chest x-ray has been obtained; report pending. Continue supplemental oxygen, scheduled and as needed nebulizer treatments, initiate steroids, and resume home dose Lasix. Management as above. - Time Time Spent with patient: 15-24 minutes Medications reviewed and adjusted accordingly: Yes Anticipated discharge: Home Within: within 48 hours - Inpatient Certification Based on my medical assessment, after consideration of the patient's comorbidities, presenting symptoms, or acuity I expect that the services needed warrant INPATIENT care.: Yes I certify that my determination is in accordance with my understanding of Medicare's requirements for reasonable and necessary INPATIENT services [42 CFR 412.3e].: Yes Medical Necessity: Need For Continuous Telemetry Monitoring, Need for Nebulizer Therapy and Monitoring of Response, Risk of Complication if Not Cared For in Hospital
--- NOTE | 2018-07-12 11:28 | RADIOLOGY REPORT (SQ) ---
EXAM DESCRIPTION: CHEST SINGLE VIEW COMPLETED DATE/TIME: 07/12/2018 11:00 am REASON FOR STUDY: dyspnea, hypoxia, diminished RLQ J96.01 ACUTE RESPIRATORY FAILURE WITH HYPOXIA R0 6.00 DYSPNEA, UNSPECIFIED COMPARISON: 07/10/2018. NUMBER OF VIEWS: One view. TECHNIQUE: Single frontal radiographic view of the chest acquired. LIMITATIONS: None. FINDINGS: LUNGS AND PLEURA: Mild atelectasis. Probable small effusions. MEDIASTINUM AND HILAR STRUCTURES: No masses or contour abnormality. HEART AND VASCULATURE: Cardiac enlargement. Vascular congestion. BONES: No acute findings. HARDWARE: Sternotomy wires. OTHER: No other significant finding. IMPRESSION: NO SIGNIFICANT CHANGE. TECHNICAL DOCUMENTATION: JOB ID: [id number] [employer]- All Rights Reserved Reading location - IP/workstation name: [email or web address]
[2018-07-12] MEDS ORDERED: FUROSEMIDE 40 MG TABLET PO ONE (11:30)
[2018-07-12] MEDS: INSULIN LISPRO 100 UNIT/ML 3 ML VIAL SUBCUT PRN ×3 (12:02→21:55)
[2018-07-12] MEDS: GUAIFENESIN 600 MG TABLET.SA PO SCH (21:50)
[2018-07-12] MEDS: ATORVASTATIN CALCIUM 20 MG TABLET PO SCH (21:50)
[2018-07-12] MEDS: INSULIN GLARGINE,HUM.REC.ANLOG 300 UNIT/3 ML INSULN.PEN SUBCUT SCH (21:56)
[2018-07-13] MEDS: IPRATROPIUM/ALBUTEROL 0.5-2.5 MG/3 ML AMPUL NEB SCH ×3 (00:14→20:05)
[2018-07-13] MEDS: DILTIAZEM HCL 60 MG TABLET PO SCH ×4 (05:04→23:47)
[2018-07-13] MEDS: INSULIN LISPRO 100 UNIT/ML 3 ML VIAL SUBCUT PRN ×4 (08:13→21:47)
[2018-07-13] MEDS: ASPIRIN 81 MG TABLET, CHEWABLE PO SCH (10:06)
[2018-07-13] MEDS: FLUTICASONE NASAL SPRAY 50 MCG/SPRY 120 SPRAY/16 GM NASL SCH ×2 (10:06→21:47)
[2018-07-13] MEDS: FUROSEMIDE 20 MG TABLET PO SCH (10:06)
[2018-07-13] MEDS: APIXABAN 5 MG TABLET PO SCH ×2 (10:06→18:22)
[2018-07-13] MEDS: FAMOTIDINE 20 MG TABLET PO SCH ×2 (10:06→21:47)
[2018-07-13] MEDS: PREDNISONE 20 MG TABLET PO SCH (10:06)
[2018-07-13] MEDS: METOPROLOL TARTRATE 50 MG TABLET PO SCH ×2 (10:07→21:46)
[2018-07-13] MEDS: GUAIFENESIN 600 MG TABLET.SA PO SCH ×2 (10:09→21:47)
[2018-07-13] MEDS: DOXYCYCLINE HYCLATE 100 MG TABLET PO SCH ×2 (10:09→21:47)
[2018-07-13] MEDS ORDERED: METOPROLOL TARTRATE 25 MG TABLET PO ONE (12:00)
[2018-07-13] MEDS ORDERED: DIGOXIN INJ 0.5 MG/2 ML AMPULE IV ONE (14:20)
--- NOTE | 2018-07-13 18:14 | PDOC PROGRESS REPORT ---
Subjective Progress Note for:: 07/13/18 Subjective:: The patient is a very pleasant 73-year-old male with a past medical history of atrial fibrillation, CAD, [place], hyperlipidemia, hypertension, and COPD who was admitted 07/11/2018 for atrial fibrillation with RVR and a COPD exacerbation with bronchitis. Patient was seen on morning rounds with his present. He was found sitting up to the recliner on supplemental oxygen at 2 L/min. He is not home O2 dependent. The patient reports that he is feeling much better and is hopeful to go home today. The patient did a 6-minute ambulatory test; maintained oxygen saturations in the mid 90s. However, his heart rate increased to the 120s and never returned to rate control. He has been persistently in the 120s-140s this afternoon; required IV digoxin to obtain rate control. The patient denies chest pain or palpitations; states that he feels well, however is frustrated. He denies fever, chills, headache, dizziness, chest pain, orthopnea, abdominal pain, nausea vomiting and diarrhea. He has no other questions or concerns at this time. No concerns per nursing Reason For Visit: AFIB W/ RVR,COPD EXACERBATION Physical Exam Vital Signs: Temp Pulse Resp BP Pulse Ox 97.8 F 81 18 110/80 90 L 07/13/18 14:57 07/13/18 16:34 07/13/18 16:34 07/13/18 16:34 07/13/18 14:57 Intake & Output 07/12/18 07/13/18 07/14/18 06:59 06:59 06:59 Intake Total 1487 1309 Output Total 400 1675 Balance 1087 -366 Weight 87.1 kg 86.8 kg General appearance: PRESENT: no acute distress, cooperative - Pleasant, well- developed, well-nourished - Overweight Head exam: PRESENT: atraumatic, normocephalic Eye exam: PRESENT: conjunctiva pink, EOMI, PERRLA. ABSENT: scleral icterus Ear exam: PRESENT: normal external ear exam Mouth exam: PRESENT: moist, tongue midline Neck exam: ABSENT: carotid bruit, JVD, lymphadenopathy, thyromegaly Respiratory exam: PRESENT: rhonchi, symmetrical, unlabored. ABSENT: rales, wheezes Cardiovascular exam: PRESENT: irregular rhythm, +S1, +S2, tachycardia. ABSENT: diastolic murmur, rubs, systolic murmur Pulses: PRESENT: normal dorsalis pedis pul Vascular exam: PRESENT: normal capillary refill GI/Abdominal exam: PRESENT: normal bowel sounds, soft. ABSENT: distended, guarding, mass, organolmegaly, rebound, tenderness Rectal exam: PRESENT: deferred Extremities exam: PRESENT: full ROM. ABSENT: calf tenderness, clubbing, pedal edema Neurological exam: PRESENT: alert, awake, oriented to person, oriented to place, oriented to time, oriented to situation, CN II-XII grossly intact. ABSENT: motor sensory deficit Psychiatric exam: PRESENT: appropriate affect, normal mood. ABSENT: homicidal ideation, suicidal ideation Skin exam: PRESENT: dry, intact, warm. ABSENT: cyanosis, rash Results Laboratory Results: 07/12/18 10:10 07/12/18 10:10 07/10/18 07/10/18 07/10/18 17:28 17:28 17:28 Creatine Kinase 44 L CK-MB (CK-2) 0.87 Troponin I 0.013 NT-Pro-B Natriuret Pep 1210 H 07/10/18 07/10/18 07/11/18 21:15 21:15 03:31 Creatine Kinase 34 L 37 L CK-MB (CK-2) 0.74 Troponin I < 0.012 NT-Pro-B Natriuret Pep 07/11/18 07/11/18 07/11/18 03:31 09:26 09:26 Creatine Kinase 37 L CK-MB (CK-2) 0.71 0.75 Troponin I < 0.012 < 0.012 NT-Pro-B Natriuret Pep 07/12/18 10:10 Creatine Kinase CK-MB (CK-2) Troponin I NT-Pro-B Natriuret Pep 1290 H Impressions: Chest X-Ray 07/12/18 00:00 IMPRESSION: NO SIGNIFICANT CHANGE. Assessment & Plan - Diagnosis (1) Atrial fibrillation with rapid ventricular response Is this a current diagnosis for this admission?: Yes Plan: Patient became persistently tachycardic after ambulatory; heart rate increased to the 120s-140s and remained elevated for several hours. Rate control was obtained with IV digoxin. Secondary to delay in obtaining new prescription for diltiazem (patient report that the pharmacy had to order this and so he did not receive it for 2-3 days following his discharge earlier this week) and COPD exacerbation. He remains in atrial fibrillation, though now rate controlled in the 70s-80s. He is admitted to the medical floor on continuous cardiac telemetry. Continuing his home dose Cardizem 60 mg every 6 hours. Continue Lopressor 100 mg every 12 hours. Start digoxin 0.125 mg p.o. twice daily. Continue home dose Eliquis and daily aspirin. Consider cardiology consultation. (2) COPD exacerbation Is this a current diagnosis for this admission?: Yes Plan: Improved; now maintaining oxygen saturations while ambulatory. Chest x-ray is unchanged from 07/06/18; minimal bilateral pleural effusions with atelectasis/consolidations. Repeat chest x-ray today. We will provide supplemental oxygen as needed to maintain oxygen saturations. Scheduled and nebulizers as needed. Daily Flonase. Continue doxycycline secondary to patient's increased sputum production. Prednisone daily. Mucinex twice daily. Robitussin every 4 hours as needed for cough. Incentive spirometer and flutter valve to bedside. (3) Acute bronchitis Is this a current diagnosis for this admission?: Yes Plan: Secondary to #2; regiment as above. (4) Diabetes mellitus type 2, insulin dependent Is this a current diagnosis for this admission?: Yes Plan: The patient's oral diabetic agents are held. He is placed on a consistent carb diet. Continue home dose Lantus. Accu-Cheks before meals and at bedtime with Humalog for sliding scale coverage. (5) Acute respiratory failure with hypoxia Is this a current diagnosis for this admission?: Yes Plan: Resolved; now maintaining oxygen saturations while ambulatory on room air. Patient became dizzy, tachypneic, and tachycardic overnight. Found to have oxygen saturations in the mid 80s. CBC this morning is reassuring. ProBNP is unchanged at 1200. Chest x-ray has been obtained; report pending. Continue supplemental oxygen, scheduled and as needed nebulizer treatments, continue steroids and home dose Lasix. Management as above. - Time Time Spent with patient: 25-34 minutes Medications reviewed and adjusted accordingly: Yes Anticipated discharge: Home Within: within 48 hours
[2018-07-13] MEDS: ATORVASTATIN CALCIUM 20 MG TABLET PO SCH (21:46)
[2018-07-13] MEDS: DIGOXIN 0.125 MG TABLET PO SCH (21:47)
[2018-07-13] MEDS: INSULIN GLARGINE,HUM.REC.ANLOG 300 UNIT/3 ML INSULN.PEN SUBCUT SCH (21:48)
[2018-07-14] MEDS: DILTIAZEM HCL 60 MG TABLET PO SCH ×3 (05:37→17:00)
[2018-07-14 06:24] LABS: ANION GAP 10 (5-19); BLOOD UREA NITROGEN 27 mg/dL (7-20); CALCIUM 8.8 mg/dL (8.4-10.2); CARBON DIOXIDE 29 mmol/L (22-30); CHLORIDE 98 mmol/L (98-107); GLUCOSE 218 mg/dL (75-110); POTASSIUM 4.4 mmol/L (3.6-5.0)
[2018-07-14] MEDS: INSULIN LISPRO 100 UNIT/ML 3 ML VIAL SUBCUT PRN ×3 (08:22→16:57)
[2018-07-14] MEDS: IPRATROPIUM/ALBUTEROL 0.5-2.5 MG/3 ML AMPUL NEB SCH (08:38)
[2018-07-14] MEDS: APIXABAN 5 MG TABLET PO SCH ×2 (09:20→17:00)
[2018-07-14] MEDS: FLUTICASONE NASAL SPRAY 50 MCG/SPRY 120 SPRAY/16 GM NASL SCH (09:20)
[2018-07-14] MEDS: DIGOXIN 0.125 MG TABLET PO SCH (09:21)
[2018-07-14] MEDS: METOPROLOL TARTRATE 50 MG TABLET PO SCH (09:21)
[2018-07-14] MEDS: FUROSEMIDE 20 MG TABLET PO SCH (09:22)
[2018-07-14] MEDS: FAMOTIDINE 20 MG TABLET PO SCH (09:22)
[2018-07-14] MEDS: DOXYCYCLINE HYCLATE 100 MG TABLET PO SCH (09:22)
[2018-07-14] MEDS: ASPIRIN 81 MG TABLET, CHEWABLE PO SCH (09:22)
[2018-07-14] MEDS: GUAIFENESIN 600 MG TABLET.SA PO SCH (09:23)
[2018-07-14] MEDS: PREDNISONE 20 MG TABLET PO SCH (09:23)
[2018-07-14 17:33] VITALS: BP 110/80
--- NOTE | 2018-07-17 09:12 | PDOC DISCHARGE SUMMARY ---
General - Admit/Disc Date/PCP Admission Date/Primary Care Provider: 07/10/18 21:34 Discharge Date: 07/14/18 - Discharge Diagnosis (1) Acute respiratory failure with hypoxia Is this a current diagnosis for this admission?: Yes (2) Atrial fibrillation with rapid ventricular response Is this a current diagnosis for this admission?: Yes (3) Acute bronchitis Is this a current diagnosis for this admission?: Yes (4) COPD exacerbation Is this a current diagnosis for this admission?: Yes (5) Diabetes mellitus type 2, insulin dependent Is this a current diagnosis for this admission?: Yes - Additional Information Resuscitation Status: Full Code Discharge Diet: Cardiac Discharge Activity: Activity As Tolerated Prescriptions: Digoxin [Lanoxin 0.125 mg Tablet] 0.125 mg PO Q12 #60 tablet Diltiazem HCl [Cardizem 60 mg Tablet] 60 mg PO Q6 #120 tablet Doxycycline Hyclate [Vibramycin 100 mg Tablet] 100 mg PO Q12 3 Days #3 tablet Ipratropium/Albuterol Sulfate [Duoneb 3 ml Ampul] 3 ml NEB Q6HP PRN #15 vial.neb PRN Reason: Home Medications: Atorvastatin Calcium [Lipitor 20 mg Tablet] 20 mg PO DAILY 07/03/18 Insulin Glargine,Hum.rec.anlog [Lantus Insulin 100 Unit/mL] 35 unit SQ QHS 07/03/18 Metformin HCl 1,000 mg PO BID 07/03/18 Ramipril [Altace 5 mg Capsule] 5 mg PO QHS 07/03/18 Apixaban [Eliquis 5 mg Tablet] 5 mg PO BID 30 Days #60 tablet 07/06/18 Aspirin [Aspirin 81 mg Chewable Tablet] 81 mg PO DAILY tab.chew 07/06/18 Furosemide [Lasix 20 mg Tablet] 20 mg PO DAILY 30 Days #30 tablet 07/06/18 Metoprolol Tartrate [Lopressor 50 mg Tablet] 100 mg PO Q12 tablet 07/06/18 Diltiazem HCl [Cardizem 60 mg Tablet] 60 mg PO Q6 07/11/18 Sitagliptin Phosphate [Januvia] 100 mg PO DAILY 07/11/18 Digoxin [Lanoxin 0.125 mg Tablet] 0.125 mg PO Q12 #60 tablet 07/14/18 Diltiazem HCl [Cardizem 60 mg Tablet] 60 mg PO Q6 #120 tablet 07/14/18 Doxycycline Hyclate [Vibramycin 100 mg Tablet] 100 mg PO Q12 3 Days #3 tablet 07/14/18 Famotidine [Pepcid 20 mg Tablet] 20 mg PO Q12 tablet 07/14/18 Ipratropium/Albuterol Sulfate [Duoneb 3 ml Ampul] 3 ml NEB Q6HP PRN #15 vial.neb 07/14/18 Metoprolol Tartrate [Lopressor 50 mg Tablet] 100 mg PO Q12 tablet 07/14/18 History of Present Illness History of Present Illness: COOPER AMADOR is a 73 year old male with a past medical history of atrial fibrillation recently discharged from [facility] for A. fib with RVR but unable to fill prescription. He returns after adjustment of medication for which she complies but is found to have intractable fatigue palpitations and tachycardia. In the emergency room is found to have A. fib with RVR ranging from 100-150. He is referred to the hospitalist for admission. He denies chest pain nausea vomiting diaphoresis or shortness of breath. He admits rhinorrhea, postnasal drip and a persistent nonproductive cough. Hospital Course Hospital Course: The patient is a very pleasant 73-year-old male with a past medical history of atrial fibrillation, CAD, [place], hyperlipidemia, hypertension, and COPD who was admitted 07/11/2018 for atrial fibrillation with RVR and a COPD exacerbation with bronchitis. According to the patient's , the patient was not able to get his diltiazem prescription on time because the pharmacy had to order this and so he did not receive it for 2-3 days. He was given his home dose of 60mg PO q6h, but his HR remained elevated. He was started on PO Digoxin and heart rate control was achieved. The patient was initially thought to experience a COPD exacerbation, but his res piratory symptoms were likely cardiac in nature when his HR was 140-150. Once HR control was achieved, the patient was discharged home. He was instructed to take all home medications as directed and begin taking Digoxin. He stated complete understanding of his discharge instructions. For any further information about the patient's hospitalization, please refer to the EMR. Physical Exam Vital Signs: Temp Pulse Resp BP Pulse Ox 98.2 F 80 17 110/80 98 07/14/18 17:28 07/14/18 17:28 07/14/18 17:28 07/14/18 17:28 07/14/18 17:28 Results Laboratory Results: 07/12/18 10:10 07/14/18 05:20 07/10/18 07/10/18 07/10/18 17:28 17:28 17:28 Creatine Kinase 44 L CK-MB (CK-2) 0.87 Troponin I 0.013 NT-Pro-B Natriuret Pep 1210 H 07/10/18 07/10/18 07/11/18 21:15 21:15 03:31 Creatine Kinase 34 L 37 L CK-MB (CK-2) 0.74 Troponin I < 0.012 NT-Pro-B Natriuret Pep 07/11/18 07/11/18 07/11/18 03:31 09:26 09:26 Creatine Kinase 37 L CK-MB (CK-2) 0.71 0.75 Troponin I < 0.012 < 0.012 NT-Pro-B Natriuret Pep 07/12/18 10:10 Creatine Kinase CK-MB (CK-2) Troponin I NT-Pro-B Natriuret Pep 1290 H Impressions: Chest X-Ray 07/12/18 00:00 IMPRESSION: NO SIGNIFICANT CHANGE. Status: Imported from PACS Qualifiers - * PATIENT BEING DISCHARGED WITH ANY OF THE FOLLOWING DIAGNOSIS: No
== END 2018-07-14 18:00 | disposition home or self-care (01) | DRG 308 ==
LOC: ER 14:49 → EH 21:34 → OBSVTOIN 21:34 → INTOOBSV 21:34 → 4N 07-11
PROVIDERS: ADMIT Internal Medicine; ATTEND Internal Medicine
PROC: 3E0F73Z Introduction of Anti-inflammatory into Respiratory Tract, Via Natural or Artificial Opening (ICD-10-PCS; principal; 2018-07-11)
DX: I48.91 Unspecified atrial fibrillation (principal); J96.01 Acute respiratory failure with hypoxia; J44.1 Chronic obstructive pulmonary disease with (acute) exacerbation; J44.0 Chronic obstructive pulmonary disease with (acute) lower respiratory infection; J20.9 Acute bronchitis, unspecified; E11.9 Type 2 diabetes mellitus without complications; I25.10 Atherosclerotic heart disease of native coronary artery without angina pectoris; E78.00 Pure hypercholesterolemia, unspecified; I10 Essential (primary) hypertension; I25.2 Old myocardial infarction; Z79.4 Long term (current) use of insulin; Z79.82 Long term (current) use of aspirin; Z79.899 Other long term (current) drug therapy; Z95.5 Presence of coronary angioplasty implant and graft; Z95.1 Presence of aortocoronary bypass graft; Z87.891 Personal history of nicotine dependence; Z82.49 Family history of ischemic heart disease and other diseases of the circulatory system
CPT/HCPCS: 36415; 71045; 80048; 80053; 81001; 82550; 82553; 82962; 83735; 83880; 84484; 85025; 85027; 93005; 93010; 94640; 94668; 94799; 99285; G0378; J1160; J1815; J2930; J3490; J7512; J7620